=== PATIENT | female | born 1960 | race Caucasian/White ===

== ENCOUNTER 2018-09-17 08:36 | Inpatient (IN) | payer OTHER ==
[2018-09-17] MEDS ORDERED: Morphine VIAL* 4 MG/ML VIAL (1 ml vial) IV ONE (09:10)
[2018-09-17] MEDS ORDERED: Ondansetron INJ* 2 MG/ML VIAL IV ONE (09:10)
[2018-09-17 09:45] LABS: Hematocrit 39 % (35-47); Hemoglobin 12.8 g/dl (12.0-16.0); Mean Corpuscular HGB Conc 33 g/dl (31-36); Mean Corpuscular Hemoglobin 32 pg (27-31); Mean Corpuscular Volume 97 fL (80-97); Mean Platelet Volume 7.2 fL (7.4-10.4); Platelet Count 393 10^3/ul (150-450); Red Cell Distribution Width 13 % (10.5-15); White Blood Count 14.1 10^3/ul (3.5-10.8)
[2018-09-17 10:00] LABS: Albumin/Globulin Ratio 1.3 (1-3); BUN/Creatinine Ratio 14.1 (8-20); C Reactive Protein 143.63 mg/L (<8.01); Calcium 9.3 mg/dL (8.6-10.3); EGFR African American 102.3 (>60); EGFR Non-African American 84.6 (>60); Globulin 3.1 g/dL (2-4); Potassium 4.5 mmol/L (3.5-5.0); Total Bilirubin 0.6 mg/dL (0.2-1.0); Total Protein 7.1 g/dL (6.4-8.9)
[2018-09-17 10:07] LABS: ABS Basophils 0 10^3/ul (0-0.2); ABS Eosinophils 0.1 10^3/ul (0-0.6); ABS Lymphocytes 0.7 10^3/ul (1.0-4.8); ABS Monocytes 0.9 10^3/ul (0-0.8); ABS Neutrophils 12.5 10^3/ul (1.5-7.7); ABS Nucleated RBC 0 10^3/ul; Eosinophil % 0.8 %; Lymphocyte % 4.6 %; Nucleated Red Blood Cells % 0
[2018-09-17] MEDS ORDERED: Iohexol 350* (CONTRAST) 500 ML MDV IV ONE (10:43)
[2018-09-17] MEDS ORDERED: Levofloxacin 750 MG IVPREMIX(* 750 MG/150 ML BAG IVPB ONE (11:15)
[2018-09-17] MEDS ORDERED: NS 0.9% 1000 ML** 1,000 ML IV ONE (11:15)
[2018-09-17] MEDS ORDERED: Morphine VIAL* 10 MG/ML 1 ML VIAL IV ONE (11:24)
[2018-09-17] MEDS ORDERED: traMADol TAB* 50 MG PO PRN (12:59)
[2018-09-17] MEDS ORDERED: Enoxaparin(*) 40 MG/0.4 ML SYR SUBCUT SCH (13:00)
[2018-09-17 13:09] LABS: INR 0.98 (0.77-1.02)
--- NOTE | 2018-09-17 13:10 | ED ---
HPI Cardiac - HPI Summary HPI Summary: Patient is a 58-year-old female with right upper back pain which radiates around the right rib cage into the RUQ. On arrival, she states "it's my gallbladder." She states she's never had any previous gallbladder diagnosis. Denies any nausea, vomiting. Symptoms are not aggravated after eating. Symptoms are aggravated with dependency and positional. She states symptoms are worse with lying to her right side, slightly better with sitting upright. She does endorse some SOB with this to which she states "it is difficult to breathe due to pain." She was recently diagnosed last week with breast cancer, biopsy was done a few days ago and she is to follow up in [place] on . She states other than the breast biopsy, no other scans were completed at this time. She endorses heavy smoking history 40 years. She denies any cough, cough with production. Denies any oxygen usage at baseline. She does not have a PCP and states has not on to see a physician in over 30 years. - History of Current Complaint Chief Complaint: Gema Stated Complaint: BACK PAIN LOWER RIGHT Time Seen by Provider: 09/17/18 08:44 Hx Obtained From: Patient Onset/Duration: Started Days Ago Timing: Constant Initial Severity: Moderate Current Severity: Moderate Pain Intensity: 9 Pain Scale Used: 0-10 Numeric Aggravating Factor(s): Position Alleviating Factor(s): Rest Associated Signs and Symptoms: Positive: Negative - Risk Factors Pulmonary Embolism Risk Factors: Malignancy, Smoking Cardiac Risk Factors: Smoking Atrial Fibrillation Risk Factors: Negative TAD Risk Factors: Negative AMI/ACS Risk Factors: Hypertension, Smoking Pseudomonas Risk Factors: Chronic Lung Disease Tuberculosis Risk Factors: Negative - Allergy/Home Medications Allergies/Adverse Reactions: Allergies Allergy/AdvReac Type Severity Reaction Status Date / Time Cephalosporins Allergy Intermediate Hives Verified 09/17/18 10:40 oxycodone [From Percocet] Allergy Intermediate Hallucinati Verified 09/17/18 15: 57 ons Penicillins Allergy Intermediate Hives Verified 09/17/18 10:40 cats Allergy Intermediate Eyes Uncoded 09/17/18 10:40 Itchy/Swollen/Red/Watery PMH/Surg Hx/FS Hx/Imm Hx Previously Healthy: No - hx of breast CA Endocrine/Hematology History: Denies: Hx Diabetes Cardiovascular History: Denies: Hx Hypertension History: Denies: Hx Renal Disease Neurological History: Denies: Hx Headaches - Cancer History Hx Chemotherapy: No Hx Radiation Therapy: No - Surgical History Surgery Procedure, Year, and Place: BILAT HIP REPLACEMENT, - Immunization History Date of Influenza Vaccine: 04/2018 Hx Pertussis Vaccination: No Immunizations Up to Date: Yes Infectious Disease History: No Infectious Disease History: Denies: Traveled Outside the [place] in Last 30 Days - Social History Occupation: Unemployed Lives: With Family Alcohol Use: Occasionally Alcohol Amount: WINE DAILY Hx Substance Use: No Substance Use Type: Reports: None Hx Tobacco Use: Yes Smoking Status (MU): Heavy Every Day Tobacco Smoker Type: Cigarettes Review of Systems Constitutional: Negative Negative: Fever, Chills, Fatigue, Skin Diaphoresis Positive: Chest Pain - right upper back pain, Other. Negative: Palpitations Positive: Abdominal Pain - RUQ pain. Negative: Vomiting, Diarrhea, Nausea Genitourinary: Negative Positive: no symptoms reported, see HPI Positive: Arthralgia - right upper back pain, Myalgia Neurological: Negative All Other Systems Reviewed And Are Negative: Yes Physical Exam Vital Signs On Initial Exam: Initial Vitals Temp Pulse Resp BP Pulse Ox 98.6 F 95 20 152/84 94 09/17/18 08:40 09/17/18 08:40 09/17/18 08:40 09/17/18 08:40 09/17/18 08:40 Diagnostics - Vital Signs Vital Signs Temp Pulse Resp BP Pulse Ox 09/17/18 11:36 20 09/17/18 11:17 94 129/84 92 09/17/18 11:09 97 87 09/17/18 10:47 91 150/89 93 09/17/18 10:17 93 136/65 92 09/17/18 10:01 95 92 09/17/18 09:47 89 151/78 89 09/17/18 09:45 19 09/17/18 08:51 100 163/80 91 09/17/18 08:40 98.6 F 95 20 152/84 94 - Laboratory Lab Results: Lab Results 09/17/18 09/17/18 09/17/18 Range/Units 09:37 09:37 09:37 WBC 14.1 H (3.5-10.8) 10^3/ul RBC 4.00 (4.00-5.40) 10^6/ul Hgb 12.8 (12.0-16.0) g/dl Hct 39 (35-47) % MCV 97 (80-97) fL MCH 32 H (27-31) pg MCHC 33 (31-36) g/dl RDW 13 (10.5-15) % Plt Count 393 (150-450) 10^3/ul MPV 7.2 L (7.4-10.4) fL Neut % (Auto) 88.1 % Lymph % (Auto) 4.6 % [place] % (Auto) 6.4 % Eos % (Auto) 0.8 % Baso % (Auto) 0.1 % Absolute Neuts (auto) 12.5 H (1.5-7.7) 10^3/ul Absolute Lymphs (auto) 0.7 L (1.0-4.8) 10^3/ul Absolute Monos (auto) 0.9 H (0-0.8) 10^3/ul Absolute Eos (auto) 0.1 (0-0.6) 10^3/ul Absolute Basos (auto) 0 (0-0.2) 10^3/ul Absolute Nucleated RBC 0 10^3/ul Nucleated RBC % 0 D-Dimer, Quantitative 548 H (Less Than 230) ng/mL Sodium 134 L (135-145) mmol/L Potassium 4.5 (3.5-5.0) mmol/L Chloride 103 (101-111) mmol/L Carbon Dioxide 23 (22-32) mmol/L Anion Gap 8 (2-11) mmol/L BUN 10 (6-24) mg/dL Creatinine 0.71 (0.51-0.95) mg/dL Est GFR ( Amer) 102.3 (>60) Est GFR (Non-Af Amer) 84.6 (>60) BUN/Creatinine Ratio 14.1 (8-20) Glucose 116 H (70-100) mg/dL Calcium 9.3 (8.6-10.3) mg/dL Total Bilirubin 0.60 (0.2-1.0) mg/dL AST 12 L (13-39) U/L ALT 13 (7-52) U/L Alkaline Phosphatase 66 (34-104) U/L C-Reactive Protein 143.63 H (<8.01) mg/L Total Protein 7.1 (6.4-8.9) g/dL Albumin 4.0 (3.2-5.2) g/dL Globulin 3.1 (2-4) g/dL Albumin/Globulin Ratio 1.3 (1-3) Result Diagrams: 09/17/18 09:37 09/17/18 09:37 Lab Statement: Any lab studies that have been ordered have been reviewed, and results considered in the medical decision making process. Disposition - Course Course Of Treatment: During the course of treatment, the patient is evaluated for right upper back pain which began as left upper back pain radiating now into the right upper back. She does endorse some shortness of breath with this due to pain. She was recently diagnosed with ER-positive breast cancer and has a follow-up with her surgeon in [place] this week. Patient is a heavy smoker , but does not use O2 at home. She endorses a cough without production. Symptoms are aggravated after eating, but she endorses pain to the RUQ. Chest x -ray shows moderate right pleural effusion, right upper lobe airspace disease. Underlying nodules in the right base is not excluded. Left lung field demonstrates some minimal atelectasis. Due to her recent diagnosis of breast CA , d-dimer is obtained and is elevated at 548. CTA of the chest obtained which shows no definite pulmonary embolus or aortic dissection is noted. Airspace disease in the right lower lobe with moderate pleural effusion consistent with pneumonia. Additional area of consolidation is noted in the right upper lobe with suggestion of a small abscess measuring up to 1.6 cm. On arrival her O2 sat is 92%, however quickly dropped to 87% with any movement. She is maintained on O2 at 3 L. Discussed case with hospitalist, Dr. Darden who agrees to admit patient for pneumonia and oxygen saturation. - Differential Dx - Cardiopulmonary Differential Diagnoses - Cardiopulmonary: Chest Wall Pain, Other - Abscess, lung nodules, pneumonia, hypoxia - Diagnoses Provider Diagnoses: Pneumonia, Hypoxia Discharge - Sign-Out/Discharge Documenting (check all that apply): Patient Departure All imaging exams completed and their final reports reviewed: No Patient Received Moderate/Deep Sedation with Procedure: No - Discharge Plan Condition: Fair Disposition: ADMITTED TO [facility] Billing Disposition and Condition Condition: FAIR Disposition: Admitted to [facility]
--- NOTE | 2018-09-17 14:56 | HP ---
HISTORY OF PRESENT ILLNESS: DATE OF ADMISSION: 09/17/18 ADMITTING PROVIDER: Yordan Darden MD PRIMARY CARE PROVIDER: Mona Booth NP-C of Family Medicine. CHIEF COMPLAINT: Back pain and shortness of breath. HISTORY OF PRESENT ILLNESS: Kavitha Mcneil is a 58-year-old female with past medical history of anxiety, longtime smoker, and a recent diagnosis of ER positive, GA positive, HER-2 negative, invasive adenocarcinoma of the left breast who has been scheduled to see her breast surgeon in [place] later this week. She attests that for the last 6 days or so she developed back pain first in her upper left back, then radiating to her right back. She was taking Advil 800 mg q.6 hours to relieve the pain along with some NyQuil. She developed shortness of breath a few days ago with dyspnea on exertion and discomfort with deep breath. The pain was also worse when lying flat. She denies any fevers, chills, night sweats or change in her weight. She presented to [facility] Emergency Room, was found to have a leukocytosis of 14.1, was tachycardic between 95 and 100, respiratory rate was 20 and initially satting 94% on room air, but then dipped down to 89%. Her initial imaging was concerning for pneumonia on her chest x-ray with a moderate right pleural effusion, right upper lobe airspace disease, and some minimal atelectasis on the left lung field, could not exclude nodules in the right base. CRP was 143. She had a elevated D-dimer of 548, and a CT chest angiogram, was performed, which showed no definitive pulmonary embolus or aortic dissection. There was airspace disease in the right lower lobe with moderate right pleural effusion consistent with pneumonia. Additional area of consolidation in the right upper lobe with suggestion of a small abscess measuring up to 1.6 cm. She was for referred to hospitalist service for admission for sepsis secondary to pneumonia causing acute hypoxic respiratory failure and in the setting of recent breast cancer diagnosis that is still being worked up and staged. She has already received 750 mg IV Levaquin in the ED and she got 1 L of normal saline along with some 4 mg morphine x2. Additional workup included a gallbladder ultrasound, which showed some suggestion of fatty infiltration of the liver, but otherwise normal. PAST MEDICAL HISTORY: Anxiety, recent diagnosis of left breast invasive adenocarcinoma, ER positive, GA positive, HER-2/hank negative with planned further staging and followup with Dr. Yordan Ziegler of [place], initial evaluation had been planned , 09/20/18. She has not yet seen Dr. Dinah Chopra of Hematology/Oncology. Current smoker and a daily alcohol drinker. MEDICATIONS: Effexor 75 mg q.p.m. ALLERGIES: Include PENICILLINS (unknown, occurred as a child) and CEPHALOSPORINS, which was approximately 17 years ago created an itchy rash. FAMILY HISTORY: Her mother of breast cancer at age 71 that was a second recurrence. Her father of non-Hodgkin's lymphoma at age 84. Her brother is alive but unknown health history. Sister is alive and healthy. SOCIAL HISTORY: The patient is a half pack per day smoker, started in her teens. She drinks couple glasses of wine daily. Denies any history of alcohol withdrawal or seizures. She went a couple of days last week without any alcohol given the inclement weather. 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 She desires to be full code , but makes clear that if she was brain or terminally ill, she would not want further interventions. REVIEW OF SYSTEMS: Complete 14-point review of systems negative except as per HPI. She denies any headaches, weakness, tremors, skin rashes, abdominal pain, nausea, vomiting, diarrhea, constipation, recent travel, sick contacts. PHYSICAL EXAMINATION GENERAL APPEARANCE: No acute distress. VITAL SIGNS: Temperature 98.6, pulse rate 95 to 100, satting low at 89% on room air, blood pressure 151/78, respiratory rate 19 to 20. HEENT: Normocephalic, atraumatic. Pupils equally round reactive to light. Extraocular motions intact. No scleral icterus. NECK: Supple. No cervical lymphadenopathy. LUNGS: With rhonchi at the left mid lung and rhonchi with slightly reduced breath sounds on the right side. No wheezing. CARDIOVASCULAR: Regular rate and rhythm. No murmurs, rubs or gallops. ABDOMEN: Soft, some tenderness in the right upper quadrant. No rebound or guarding. EXTREMITIES: Warm, well perfused. Trace pitting edema bilaterally, which is chronic. SKIN: No lesions. No rashes. NEURO: Cranial nerves II through XII intact. Curriculum Assistant Principal strength intact. Biceps elicits back pain and patient did not complete hip flexion. Dorsiflexion, plantarflexion intact. DIAGNOSTIC STUDIES/LAD DATA: White count 14.1, hemoglobin 12.8, hematocrit 39 , platelets 393. D-dimer 548. Sodium 134, potassium 4.5, chloride 103, carbon dioxide 23, BUN 10 and creatinine 0.71, glucose 116. AST 12, ALT 13, alk phos 66, CRP 143, albumin 4.0. IMAGING: As above. Her initial imaging was concerning for pneumonia on her chest x-ray with a moderate right pleural effusion, right upper lobe airspace disease, and some minimal atelectasis on the left lung field, could not exclude nodules in the right base. CT chest angiogram, thoracic, was performed, which showed no definitive pulmonary embolus or aortic dissection. There was airspace disease in the right lower lobe with moderate right pleural effusion consistent with pneumonia. Additional area of consolidation in the right upper lobe with suggestion of a small abscess measuring up to 1.6 cm. EKG: Normal sinus rhythm with a Q wave in III, V1, V2. No ST elevations or depressions. Normal axis. ASSESSMENT AND PLAN: Kavitha Mcneil is a 58-year-old female with past medical history of anxiety and recent ER positive, GA positive, HER-2 negative left-sided invasive adenocarcinoma, presenting with shortness of breath times few days, back pain, and imaging consistent with right greater than left community acquired pneumonia and hard to rule out a right upper lobe abscess versus dense consolidation. I am going to consult Dr. Daniels to take a look at the images to see if it would be beneficial to do a diagnostic thoracentesis of the abscess, especially given her history of recent breast cancer that has not been fully staged. She is a current smoker. She has penicillin allergy (though remote and unclearly defined), and cephalosporins cause pruritic rashes, The ED has started Levaquin 750mg, I will continue that for now, could consider switching to carbapenem like meropenem with any decompensation. I am going to add blood cultures, but of note they were not obtained prior to initial antibiotics. Will get a urinalysis, urine strep, pneumonia, and legionella antigens, sputum culture. I am going to add on a BNP and troponin given her shortness of breath, also has evidence of pitting edema which is chronic. For DVT prophylaxis, given her recent recent cancer diagnosis, I am going to put her on Lovenox 40 mg daily. She is a full code. She can eat an unrestricted diet initially though may need to put her n.p.o. if thoracentesis is entertained by Dr. Daniels. She will likely have to reschedule her appointment with Dr. Ziegler. Medical surrogate is her , Warren Mcneil. [id number]/[facility] #: [id number] MTDMegan
[2018-09-17] MEDS ORDERED: oxyCODONE/Acetamin 5/325 MG* TAB PO PRN (15:51)
[2018-09-17] MEDS: HYDROcodone/ACETAMIN 5-325 MG* 1 TAB PO PRN ×2 (16:12→22:56)
[2018-09-17] MEDS: Ketorolac INJ* 30 MG/ML 1 ML VIAL IV PUSH PRN ×2 (16:12→22:56)
[2018-09-17] MEDS: Venlafaxine EXT RELEASE CAP* 75 MG PO SCH (20:28)
[2018-09-17 21:30] LABS: Urine Appearance Cloudy; Urine Bacteria 1+ (Absent); Urine Bilirubin Negative (Negative); Urine Blood 1+ (Negative); Urine Color Yellow; Urine Glucose Negative (Negative); Urine Ketones Trace (Negative); Urine Nitrite Negative (Negative); Urine Protein Negative (Negative); Urine Red Blood Cell 3+(>10/hpf) (Absent); Urine Specific Gravity 1.059 (1.010-1.030); Urine Squamous Epithelial Cell Present (Absent); Urine Urobilinogen Negative (Negative); Urine White Blood Cell Trace(0-5/hpf) (Absent)
[2018-09-17 22:34] LABS: Erythrocyte Sed Rate 60 mm/Hr (0-30)
[2018-09-18] MEDS: HYDROcodone/ACETAMIN 5-325 MG* 1 TAB PO PRN ×4 (06:50→23:14)
[2018-09-18] MEDS: Ketorolac INJ* 30 MG/ML 1 ML VIAL IV PUSH PRN ×4 (06:52→23:14)
[2018-09-18 08:23] LABS: ABS Basophils 0 10^3/ul (0-0.2); ABS Eosinophils 0.2 10^3/ul (0-0.6); ABS Lymphocytes 0.7 10^3/ul (1.0-4.8); ABS Monocytes 0.8 10^3/ul (0-0.8); ABS Neutrophils 13.2 10^3/ul (1.5-7.7); ABS Nucleated RBC 0 10^3/ul; Eosinophil % 1.3 %; Hematocrit 35 % (35-47); Hemoglobin 11.7 g/dl (12.0-16.0); Lymphocyte % 4.6 %; Mean Corpuscular HGB Conc 33 g/dl (31-36); Mean Corpuscular Hemoglobin 32 pg (27-31); Mean Corpuscular Volume 97 fL (80-97); Mean Platelet Volume 7.4 fL (7.4-10.4); Nucleated Red Blood Cells % 0; Platelet Count 381 10^3/ul (150-450); Red Blood Count 3.65 10^6/ul (4.00-5.40); Red Cell Distribution Width 13 % (10.5-15)
[2018-09-18 08:40] LABS: EGFR African American 79.9 (>60); Potassium 4.4 mmol/L (3.5-5.0)
[2018-09-18] MEDS: Levofloxacin 750 MG IVPREMIX(* 750 MG/150 ML BAG IVPB SCH (11:49)
[2018-09-18 16:44] LABS: Body Fluid Source Pleural Fluid
[2018-09-18 17:30] LABS: Body Fluid Mono 9 %
[2018-09-18] MEDS: Enoxaparin(*) 40 MG/0.4 ML SYR SUBCUT SCH (18:14)
--- NOTE | 2018-09-18 18:27 | CONS ---
PULMONARY CONSULTATION REPORT: DATE OF CONSULT: 09/18/18 CONSULTATION REQUESTED BY: Dr. Yordan Darden. REASON FOR CONSULT: Evaluation of pleural effusion. HISTORY OF PRESENT ILLNESS: The patient is a 58-year-old obese female, former smoker, with history of breast cancer, ER/NH positive, HER-2 negative invasive adenocarcinoma of the left breast, has been scheduled to see her breast surgeon in [place] later the week. She has been having back pain over the past 6 days , started in the left upper back, then radiating to her right back. She was taking Advil and NyQuil for pain relief. Pain worsens while lying down. The patient also complained of shortness of breath and discomfort taking deep breath. The patient denied fevers, chills, night sweats, or change in weight. She was found to have leukocytosis and tachycardia on arrival. She was also slightly tachypneic. O2 sats were around 94% on room air and would drop to 89% in the emergency room. The patient continued to remain afebrile. She has required O2 supplementation at 4 L per minute to maintain oxygen saturation at around 95%. Further evaluation included chest x-ray and CT of the chest. I have personally reviewed chest x-ray and CT of the chest and with the patient today. Chest x-ray showed evidence of airspace opacity in the right lung with evidence of pleural effusion. Mild atelectasis noted on the left side at the base. CTA did confirm moderate-sized right pleural effusion with surrounding atelectatic lung. The patient also with evidence of dense area of consolidation in the right upper lobe peripherally concerning for possible abscess. No significant mediastinal or hilar adenopathy noted. No evidence of filling defects in pulmonary arteries noted. The patient was started on Levaquin for management of pneumonia. Pulmonary consultation was requested for evaluation of pleural effusion. The patient was seen and examined at bedside. The patient reports having intermittent cramp-like pains in the back, between her ribs. The patient denies any sick contacts or recent travel. The patient did not appear to be in any distress upon my evaluation. PAST MEDICAL HISTORY: 1. Breast cancer. 2. Current smoking status and alcohol abuse. MEDICATIONS: Effexor 75 mg q.p.m. ALLERGIES: PENICILLIN, CEPHALOSPORINS. FAMILY HISTORY: Mother of breast cancer at age of 71 and that was a second recurrence. Father of non-Hodgkin lymphoma at age 84. Brother is alive. SOCIAL HISTORY: Half-a-pack per day smoker, started in teens. Drinks couple of glasses of wine every day. REVIEW OF SYSTEMS: All 14 systems reviewed and as per HPI. PHYSICAL EXAM: The patient is sitting up in bed, in no apparent distress. Vital Signs: Temperature 98.2, pulse 81 beats per minute, respiratory rate 26 per minute, O2 sat 95% on 4 L, blood pressure 104/66. HEENT: Pupils equal, reactive to light. Mucous membranes moist. Lungs: Diminished air entry at right base. Cardiovascular: S1, S2 present, regular. Abdomen: Obese. Bowel sounds present. Nontender, nondistended. Extremities: Normal range of motion. DIAGNOSTIC STUDIES/LAB DATA: WBC count 15, hemoglobin 11.7, hematocrit 35, platelet count 381. D-dimer 548. Sodium 132, potassium 4.4, chloride 103, bicarb 23, BUN 15, creatinine 0.88, glucose 111. Troponins within normal limits. BNP within normal limits. Chest x-ray and CT as described in HPI. IMPRESSION AND RECOMMENDATIONS: 58-year-old female with recently diagnosed breast cancer, the patient also with significant smoking history, admitted with new- onset back pain and shortness of breath, found to have moderate right pleural effusion along with pneumonic consolidation in the right lung. 1. Community-acquired pneumonia. 2. Possible parapneumonic effusion. 3. Recent breast cancer diagnosis. Will need diagnostic and therapeutic thoracentesis with drainage of right pleural effusion. Atelectasis and pleural effusion, likely causing hypoxemia. No evidence of pulmonary embolism on CTA. No evidence of significant emphysema on the CT. The patient would benefit from thoracentesis. Risks and benefits associated with thoracentesis were thoroughly discussed with the patient and she is agreeable to undergoing the procedure. Please refer to separately dictated thoracentesis report in the chart. 600 mL of dark fluid were removed and sent to the lab for cytological and biochemical examination. Postprocedure chest x-ray is pending. Blood cultures are negative to date, as is septic workup. Metastatic breast cancer to pleural fluid is less likely, though in the differential. Titrate FiO2 as tolerated. The patient is not looking septic at this time. Agree with current antibiotic choice. Thank you for allowing me to participate in the care of your patient. Will follow up with you. [id number]/[facility] #: [id number] BELEN
[2018-09-18] MEDS: Venlafaxine EXT RELEASE CAP* 75 MG PO SCH (19:53)
--- NOTE | 2018-09-18 21:48 | PN ---
Subjective Date of Service: 09/18/18 Interval History: Afebrile on 3L. Still with back pain but more comfortable appearing. now s/p diagnostic and therapeutic thoracenteiss with Dr. Frances fraser. 600cc dark fluid. WBC still elevated 15 Objective Active Medications: Hydrocodone Bitart/Acetaminophen ([place] 5-325 Tab*) 1 tab PO Q4H PRN PRN Reason: PAIN Last Admin: 09/18/18 16:05 Dose: 1 tab Enoxaparin Sodium (Lovenox(*)) 40 mg SUBCUT Q24H [facility] Last Admin: 09/18/18 18:14 Dose: 40 mg Levofloxacin/Dextrose (Levaquin 750 Mg Ivpremix(*)) 750 mg in 150 mls @ 100 mls /hr IVPB Q24H [facility] Last Admin: 09/18/18 11:49 Dose: 100 mls/hr Ketorolac Tromethamine (Toradol Inj*) 30 mg IV PUSH Q6H PRN PRN Reason: PAIN Last Admin: 09/18/18 18:13 Dose: 30 mg Venlafaxine HCl (Effexor Xr Cap*) 75 mg PO BEDTIME [facility]; Protocol Last Admin: 09/18/18 19:53 Dose: 75 mg Vital Signs - 8 hr 09/18/18 09/18/18 09/18/18 15:14 16:05 19:09 Temperature 98.6 F 98.5 F Pulse Rate 81 83 Respiratory 26 22 18 Rate Blood Pressure 125/67 128/46 (mmHg) O2 Sat by Pulse 94 93 Oximetry 09/18/18 09/18/18 19:44 20:01 Temperature Pulse Rate Respiratory 20 18 Rate Blood Pressure (mmHg) O2 Sat by Pulse Oximetry Oxygen Devices in Use Now: Nasal Cannula Appearance: mild discomfort appearing, worn down. Eyes: No Scleral Icterus Neck: NL Appearance and Movements; NL JVP, Trachea Midline Respiratory: - - diffuse rhonchi worse mid lungs. no wheezing. Cardiovascular: NL Sounds; No Murmurs; No JVD, No Edema Abdominal: NL Sounds; No Tenderness; No Distention, No Hepatosplenomegaly Extremities: No Edema Skin: No Rash or Ulcers Neurological: Alert and Oriented x 3 Nutrition: Taking PO's Result Diagrams: 09/18/18 08:09 09/18/18 08:09 Additional Lab and Data: Laboratory Results - last 24 hr 09/17/18 09/18/18 09/18/18 09:37 08:09 08:09 WBC 15.0 H RBC 3.65 L Hgb 11.7 L Hct 35 MCV 97 MCH 32 H MCHC 33 RDW 13 Plt Count 381 MPV 7.4 Neut % (Auto) 88.6 Lymph % (Auto) 4.6 [place] % (Auto) 5.3 Eos % (Auto) 1.3 Baso % (Auto) 0.2 Absolute Neuts (auto) 13.2 H Absolute Lymphs (auto) 0.7 L Absolute Monos (auto) 0.8 Absolute Eos (auto) 0.2 Absolute Basos (auto) 0 Absolute Nucleated RBC 0 Nucleated RBC % 0 ESR 60 H Sodium 132 L Potassium 4.4 Chloride 103 Carbon Dioxide 23 Anion Gap 6 BUN 15 Creatinine 0.88 Est GFR ( Amer) 79.9 Est GFR (Non-Af Amer) 66.0 BUN/Creatinine Ratio 17.0 Glucose 111 H Calcium 9.0 Fluid Source Fluid Volume Fluid Color Fluid Appearance Fluid WBC Fluid RBC Fluid Tot Cell Count Fluid Neutrophils Fluid Lymphocytes Fluid Monocytes Fluid Eosinophils 09/18/18 15:52 WBC RBC Hgb Hct MCV MCH MCHC RDW Plt Count MPV Neut % (Auto) Lymph % (Auto) [place] % (Auto) Eos % (Auto) Baso % (Auto) Absolute Neuts (auto) Absolute Lymphs (auto) Absolute Monos (auto) Absolute Eos (auto) Absolute Basos (auto) Absolute Nucleated RBC Nucleated RBC % ESR Sodium Potassium Chloride Carbon Dioxide Anion Gap BUN Creatinine Est GFR ( Amer) Est GFR (Non-Af Amer) BUN/Creatinine Ratio Glucose Calcium Fluid Source Pleural fluid Fluid Volume 600 Fluid Color Yellow Fluid Appearance Cloudy Fluid WBC 2700 Fluid RBC 885 Fluid Tot Cell Count 100 Fluid Neutrophils 73 Fluid Lymphocytes 17 Fluid Monocytes 9 Fluid Eosinophils 1 Microbiology and Other Data: Microbiology 09/18/18 15:52 Pleural Fluid Gram Stain - Preliminary 09/17/18 21:05 Urine Urine Culture - Final No Growth (<1,000 CFU/mL) 09/17/18 13:46 Blood Venous Aerobic Blood Culture - Preliminary No Growth Day 1 09/17/18 13:46 Blood Venous Anaerobic Blood Culture - Preliminary No Growth Day 1 09/17/18 13:13 Blood Venous Aerobic Blood Culture - Preliminary No Growth Day 1 09/17/18 13:13 Blood Venous Anaerobic Blood Culture - Preliminary No Growth Day 1 09/17/18 21:05 Urine Legionella Urinary Antigen - Final Negative Legionella Antigen 09/17/18 21:05 Urine Streptococcus pneumoniae Ag Screen - Final Negative S. pneumo Antigen Assess/Plan/Problems-Billing Assessment: 58 year old female 1/2 ppd smoker(20 pack years), daily EtOH, anxiety, recent biopsy of left breast mass invasive adenocarcinoma ER+/NC+/tik2cdr negative p/w back pain, shortness of breath. R>L pneumonia with pleural effusion/possible abscess. On levaquin (pcn, cephalosporin allergy). - Patient Problems (1) Pneumonia Current Visit: Yes Status: Acute Code(s): J18.9 - PNEUMONIA, UNSPECIFIED ORGANISM SNOMED Code(s): 197864257 Comment: Continue levaquin met SEPSIS 2 criteria on admission with tachypenia 26, acute hypoxic respiratory failure, tachycardia >90, leukocytosis(persists), source. f/u Cultures. no note BCx was obtained after antibiotics. appreciate help of Dr. Daniels who performed diagnosist and therapeutic thoracentesis today 09/18. Add on LDH and serum protein for AM labs to assess Light's criteria. levaquin day 2. pain control with ketorolac 30 q6h prn and percoset q4h prn. (2) Breast cancer Current Visit: Yes Status: Acute Code(s): C50.919 - MALIGNANT NEOPLASM OF UNSP SITE OF UNSPECIFIED FEMALE BREAST SNOMED Code(s): 348313796 Comment: ER+/NC+/wsa7bbp negative. Not fully staged. Plan to follow-up with Dr. Yordan Ziegler (breast surgery at [facility]) and Dinah Chopra as outpatient. f/u pleural fluid cytology. (3) Sepsis Current Visit: Yes Status: Acute Comment: plan as above. (4) Pleural effusion Current Visit: Yes Status: Acute Code(s): J90 - PLEURAL EFFUSION, NOT ELSEWHERE CLASSIFIED SNOMED Code(s): 72186079 Comment: thora as above. (5) Smoker Current Visit: Yes Status: Acute Code(s): F17.200 - NICOTINE DEPENDENCE, UNSPECIFIED, UNCOMPLICATED SNOMED Code(s): 94836255 Comment: 1/2 ppd, 20 pack years. can add patch if requests. (6) Daily consumption of alcohol Current Visit: Yes Status: Acute Code(s): Z78.9 - OTHER SPECIFIED HEALTH STATUS SNOMED Code(s): 459695863 Comment: monitor for withdrawals. no hx of seizures or withdrawals. (7) Anxiety Current Visit: Yes Status: Acute Code(s): F41.9 - ANXIETY DISORDER, UNSPECIFIED SNOMED Code(s): 11710070 Comment: continue effexor Status and Disposition: medicine inpatient for resolving sepsis, f/u thora cultures and hypoxic respiratory failure.
--- NOTE | 2018-09-18 21:52 | PRO ---
THORACENTESIS REPORT: DATE OF PROCEDURE: 09/18/18 PROCEDURE PERFORMED: Ultrasound-guided thoracentesis on the right side. PREPROCEDURAL DIAGNOSIS: Pneumonia and pleural effusion. ANESTHESIA: Local anesthesia with 1% lidocaine, 5 cc. DESCRIPTION OF PROCEDURE: Informed consent was obtained from the patient prior to the procedure after all the risks and benefits including risk of pneumothorax was thoroughly explained. Appropriate time-out was agreed on by attending staff prior to the procedure. A portable ultrasound was utilized at bedside to localize moderate amounts of right pleural effusion with surrounding atelectatic lung. Strict aseptic precautions and barrier techniques were utilized. The patient was sitting up and leaning forward. A CareFusion thoracentesis catheter of 8-[place]gu[place] was utilized. Area was sterilized with chlorhexidine swab. Sterile drape was placed. After ultrasound localization, anesthesia was achieved intradermally subcutaneously down into the pleural space taking precautions. A #11-scalpel blade was used to make a stab incision. A CareFusion 8-[place]guillan thoracentesis catheter was then inserted under manual suction taking precautions. Catheter was left in place and needle was removed. 600 mL of dark yellow and slightly turbid fluid was removed under manual suction. The patient had slight discomfort towards the end of the procedure complaining of muscle spasm. The patient's vitals were checked after the procedure, which were within normal limits. A postprocedure chest x-ray was performed and is pending at the time of dictation. Specimen was sent to the lab for further testing. [id number] #: [id number] MTDD
[2018-09-19 05:30] LABS: ABS Basophils 0.1 10^3/ul (0-0.2); ABS Eosinophils 0.2 10^3/ul (0-0.6); ABS Lymphocytes 1.1 10^3/ul (1.0-4.8); ABS Monocytes 0.7 10^3/ul (0-0.8); ABS Neutrophils 11.9 10^3/ul (1.5-7.7); ABS Nucleated RBC 0 10^3/ul; Eosinophil % 1.4 %; Hematocrit 36 % (35-47); Hemoglobin 11.9 g/dl (12.0-16.0); Lymphocyte % 7.8 %; Mean Corpuscular HGB Conc 33 g/dl (31-36); Mean Corpuscular Hemoglobin 32 pg (27-31); Mean Corpuscular Volume 96 fL (80-97); Mean Platelet Volume 7.8 fL (7.4-10.4); Nucleated Red Blood Cells % 0; Platelet Count 397 10^3/ul (150-450); Red Blood Count 3.75 10^6/ul (4.00-5.40); Red Cell Distribution Width 13 % (10.5-15); White Blood Count 14.1 10^3/ul (3.5-10.8)
[2018-09-19 05:44] LABS: BUN/Creatinine Ratio 20.8 (8-20); C Reactive Protein 310.25 mg/L (<8.01); Calcium 9.2 mg/dL (8.6-10.3); EGFR African American 100.7 (>60); EGFR Non-African American 83.2 (>60); Potassium 4.2 mmol/L (3.5-5.0); Total Protein 6.5 g/dL (6.4-8.9)
[2018-09-19] MEDS: HYDROcodone/ACETAMIN 5-325 MG* 1 TAB PO PRN ×3 (07:16→21:39)
[2018-09-19] MEDS: Ketorolac INJ* 30 MG/ML 1 ML VIAL IV PUSH PRN ×3 (07:16→21:41)
[2018-09-19] MEDS: Levofloxacin 750 MG IVPREMIX(* 750 MG/150 ML BAG IVPB SCH (10:38)
[2018-09-19] MEDS: Morphine VIAL* 4 MG/ML VIAL (1 ml vial) IV PRN ×3 (14:45→19:59)
[2018-09-19] MEDS: Enoxaparin(*) 40 MG/0.4 ML SYR SUBCUT SCH (16:48)
[2018-09-19] MEDS ORDERED: guaiFENesin ER TAB 600 MG PO SCH (17:01)
--- NOTE | 2018-09-19 17:21 | PN ---
Subjective Date of Service: 09/19/18 Interval History: still with a lot of pain, especially with coughing. Requiring 4L currently. Refused PT evaluation. Afebrile peritoneal fluid culture negative. no evidence of malignant cells. leukocytosis persists. Objective Active Medications: Hydrocodone Bitart/Acetaminophen ([place] 5-325 Tab*) 1 tab PO Q4H PRN PRN Reason: PAIN Last Admin: 09/19/18 13:51 Dose: 1 tab Enoxaparin Sodium (Lovenox(*)) 40 mg SUBCUT Q24H [facility] Last Admin: 09/19/18 16:48 Dose: 40 mg Guaifenesin (Mucinex*) 600 mg PO BID [facility] Levofloxacin/Dextrose (Levaquin 750 Mg Ivpremix(*)) 750 mg in 150 mls @ 100 mls /hr IVPB Q24H [facility] Last Admin: 09/19/18 10:38 Dose: 100 mls/hr Ketorolac Tromethamine (Toradol Inj*) 30 mg IV PUSH Q6H PRN PRN Reason: PAIN Last Admin: 09/19/18 13:51 Dose: 30 mg Morphine Sulfate (Morphine Vial*) 2 mg IV Q2H PRN PRN Reason: PAIN Last Admin: 09/19/18 14:45 Dose: 2 mg Venlafaxine HCl (Effexor Xr Cap*) 75 mg PO BEDTIME [facility]; Protocol Last Admin: 09/18/18 19:53 Dose: 75 mg Vital Signs - 8 hr 09/19/18 09/19/18 09/19/18 09:14 12:20 13:48 Temperature 98.0 F 97.3 F Pulse Rate 86 88 Respiratory 18 16 32 Rate Blood Pressure 155/87 169/59 (mmHg) O2 Sat by Pulse 95 96 Oximetry 09/19/18 09/19/18 09/19/18 13:51 13:52 14:45 Temperature Pulse Rate Respiratory 26 26 Rate Blood Pressure 158/68 (mmHg) O2 Sat by Pulse Oximetry 09/19/18 09/19/18 09/19/18 15:14 15:15 15:59 Temperature Pulse Rate 72 Respiratory 20 20 20 Rate Blood Pressure (mmHg) O2 Sat by Pulse Oximetry 09/19/18 16:03 Temperature 97.9 F Pulse Rate 84 Respiratory 20 Rate Blood Pressure 148/69 (mmHg) O2 Sat by Pulse 93 Oximetry Oxygen Devices in Use Now: Nasal Cannula Appearance: NAD but very fatigued looking Eyes: No Scleral Icterus Ears/Nose/Mouth/Throat: NL Teeth, Lips, Gums Neck: NL Appearance and Movements; NL JVP, Trachea Midline Respiratory: - - rhonchi diffusely (improved), decreased right base. Cardiovascular: NL Sounds; No Murmurs; No JVD, RRR Abdominal: NL Sounds; No Tenderness; No Distention, No Hepatosplenomegaly Extremities: No Edema Skin: No Rash or Ulcers Neurological: Alert and Oriented x 3, NL Sensation, NL Muscle Strength and Tone Nutrition: Taking PO's Result Diagrams: 09/19/18 04:36 09/19/18 04:35 Additional Lab and Data: Laboratory Results - last 24 hr 09/18/18 09/19/18 09/19/18 15:52 04:35 04:36 WBC 14.1 H RBC 3.75 L Hgb 11.9 L Hct 36 MCV 96 MCH 32 H MCHC 33 RDW 13 Plt Count 397 MPV 7.8 Neut % (Auto) 84.8 Lymph % (Auto) 7.8 [place] % (Auto) 5.0 Eos % (Auto) 1.4 Baso % (Auto) 1.0 Absolute Neuts (auto) 11.9 H Absolute Lymphs (auto) 1.1 Absolute Monos (auto) 0.7 Absolute Eos (auto) 0.2 Absolute Basos (auto) 0.1 Absolute Nucleated RBC 0 Nucleated RBC % 0 Sodium 128 L Potassium 4.2 Chloride 99 L Carbon Dioxide 20 L Anion Gap 9 BUN 15 Creatinine 0.72 Est GFR ( Amer) 100.7 Est GFR (Non-Af Amer) 83.2 BUN/Creatinine Ratio 20.8 H Glucose 96 Calcium 9.2 Lactate Dehydrogenase 196 C-Reactive Protein 310.25 H Total Protein 6.5 Fluid Cell Count Rvw By Microbiology and Other Data: Microbiology 09/17/18 13:46 Blood Venous Aerobic Blood Culture - Preliminary No Growth Day 2 09/17/18 13:46 Blood Venous Anaerobic Blood Culture - Preliminary No Growth Day 2 09/17/18 13:13 Blood Venous Aerobic Blood Culture - Preliminary No Growth Day 2 09/17/18 13:13 Blood Venous Anaerobic Blood Culture - Preliminary No Growth Day 2 09/18/18 15:52 Pleural Fluid Gram Stain - Final 09/18/18 15:52 Pleural Fluid Body Fluid Culture - Preliminary No Growth Day 1 09/17/18 21:05 Urine Urine Culture - Final No Growth (<1,000 CFU/mL) 09/17/18 21:05 Urine Legionella Urinary Antigen - Final Negative Legionella Antigen 09/17/18 21:05 Urine Streptococcus pneumoniae Ag Screen - Final Negative S. pneumo Antigen Assess/Plan/Problems-Billing Assessment: 58 year old female 1/2 ppd smoker(20 pack years), daily EtOH, anxiety, recent biopsy of left breast mass invasive adenocarcinoma ER+/[place]+/axo8qhy negative p/w back pain, shortness of breath. R>L pneumonia with pleural effusion/possible abscess s/p thoracentesis 09/18. On levaquin (pcn, cephalosporin allergy). - Patient Problems (1) Pneumonia Current Visit: Yes Status: Acute Code(s): J18.9 - PNEUMONIA, UNSPECIFIED ORGANISM SNOMED Code(s): 811521360 Comment: Continue levaquin met SEPSIS 2 criteria on admission with tachypenia 26, acute hypoxic respiratory failure, tachycardia >90, leukocytosis(persists), source. f/u Cultures, NGTD. no note BCx was obtained after antibiotics. appreciate help of Dr. Daniels who performed diagnosistic and therapeutic thoracentesis today 09/19. f/u LDH and serum protein for AM labs to assess Light' s criteria. levaquin day 3. pain control with ketorolac 30 q6h prn and percoset q4h prn. add guafenesin DM wean O2 as tolerated (2) Breast cancer Current Visit: Yes Status: Acute Code(s): C50.919 - MALIGNANT NEOPLASM OF UNSP SITE OF UNSPECIFIED FEMALE BREAST SNOMED Code(s): 469962814 Comment: ER+/KS+/cpu1iie negative. Not fully staged. Plan to follow-up with Dr. Yordan Ziegler (breast surgery at [facility]) and Dinah Chopra as outpatient. pleural fluid cytology without e/o malignant cells. (3) Sepsis Current Visit: Yes Status: Acute Comment: plan as above. (4) Pleural effusion Current Visit: Yes Status: Acute Code(s): J90 - PLEURAL EFFUSION, NOT ELSEWHERE CLASSIFIED SNOMED Code(s): 76192838 Comment: s/p thora as above. repeat CXR (PA/LAT) in AM (5) Smoker Current Visit: Yes Status: Acute Code(s): F17.200 - NICOTINE DEPENDENCE, UNSPECIFIED, UNCOMPLICATED SNOMED Code(s): 20896169 Comment: 1/2 ppd, 20 pack years. can add patch if requests. (6) Daily consumption of alcohol Current Visit: Yes Status: Acute Code(s): Z78.9 - OTHER SPECIFIED HEALTH STATUS SNOMED Code(s): 505838494 Comment: monitor for withdrawals. no hx of seizures or withdrawals. (7) Anxiety Current Visit: Yes Status: Acute Code(s): F41.9 - ANXIETY DISORDER, UNSPECIFIED SNOMED Code(s): 01526575 Comment: continue effexor Status and Disposition: medicine inpatient for resolving sepsis,continued hypoxic respiratory failure.
--- NOTE | 2018-09-19 17:25 | PN ---
Progress Note - Progress Note Date of Service: 09/19/18 - PUlm f/u note Note: Pt seen and examined at bedside. Patient reports improvement in breathing after thoracentesis yesterday. Has mild intermittent cough. Still requiring O2 supplementation at 4 L. Active Medications Generic Name Dose Route Start Last Admin Trade Name Freq PRN Reason Stop Dose Admin Hydrocodone Bitart/Acetaminophen 1 tab 09/17/18 16:02 09/19/18 13:51 [place] 5-325 Tab* PO 1 tab Q4H PRN Administration PAIN Enoxaparin Sodium 40 mg 09/18/18 17:00 09/19/18 16:48 Lovenox(*) SUBCUT 40 mg Q24H FLOR Administration Guaifenesin/Dextromethorphan 10 ml 09/19/18 17:01 Robitussin Dm* PO Q6H PRN COUGH Levofloxacin/Dextrose 750 mg in 150 mls @ 100 mls/hr 09/18/18 11:30 09/19/18 10:38 Levaquin 750 Mg Ivpremix(*) IVPB 100 mls/hr Q24H FLOR Administration Ketorolac Tromethamine 30 mg 09/17/18 16:04 09/19/18 13:51 Toradol Inj* IV PUSH 30 mg Q6H PRN Administration PAIN Morphine Sulfate 2 mg 09/19/18 14:25 09/19/18 14:45 Morphine Vial* IV 2 mg Q2H PRN Administration PAIN Venlafaxine HCl 75 mg 09/17/18 21:00 09/18/18 19:53 Effexor Xr Cap* PO 75 mg BEDTIME [facility] Administration Protocol Vital Signs Temp Pulse Resp BP Pulse Ox 97.9 F 84 20 148/69 93 09/19/18 16:03 09/19/18 16:03 09/19/18 16:03 09/19/18 16:03 09/19/18 16:03 O/E: Pt in NAD HEENT: PERRLA, NO JVD Lungs: Diminished at rt base CVS: S1, S2+, regular Abd: Soft, BS+ Ext: Normal ROM Neuro: nO focal deficits Laboratory Results - last 24 hr 09/18/18 09/19/18 09/19/18 15:52 04:35 04:36 WBC 14.1 H RBC 3.75 L Hgb 11.9 L Hct 36 MCV 96 MCH 32 H MCHC 33 RDW 13 Plt Count 397 MPV 7.8 Neut % (Auto) 84.8 Lymph % (Auto) 7.8 [place] % (Auto) 5.0 Eos % (Auto) 1.4 Baso % (Auto) 1.0 Absolute Neuts (auto) 11.9 H Absolute Lymphs (auto) 1.1 Absolute Monos (auto) 0.7 Absolute Eos (auto) 0.2 Absolute Basos (auto) 0.1 Absolute Nucleated RBC 0 Nucleated RBC % 0 Sodium 128 L Potassium 4.2 Chloride 99 L Carbon Dioxide 20 L Anion Gap 9 BUN 15 Creatinine 0.72 Est GFR ( Amer) 100.7 Est GFR (Non-Af Amer) 83.2 BUN/Creatinine Ratio 20.8 H Glucose 96 Calcium 9.2 Lactate Dehydrogenase 196 C-Reactive Protein 310.25 H Total Protein 6.5 Fluid Volume 600 Fluid Color Yellow Fluid Appearance Cloudy Fluid WBC 2700 Fluid RBC 885 Fluid Tot Cell Count 100 Fluid Neutrophils 73 Fluid Lymphocytes 17 Fluid Monocytes 9 Fluid Eosinophils 1 Fluid Cell Count Rvw By I/R: 58 year old female 1/2 ppd smoker(20 pack years), daily EtOH, anxiety, recent biopsy of left breast mass invasive adenocarcinoma ER+/AL+/ygp9icn negative admitted for evaluation of back pain, shortness of breath. R>L pneumonia with pleural effusion/possible abscess. Pt underwent thoracentesis yesterday with removal of 600ml of turbid fluid Cytology negative for malignancy, evidence of inflammation Pt on abx Afebrile F/u Cx on pl fluid Titrate FiO2 as tolerated OOB to chair
[2018-09-19] MEDS: Venlafaxine EXT RELEASE CAP* 75 MG PO SCH (20:01)
[2018-09-20] MEDS: Morphine VIAL* 4 MG/ML VIAL (1 ml vial) IV PRN (08:06)
[2018-09-20 08:45] LABS: ABS Basophils 0 10^3/ul (0-0.2); ABS Eosinophils 0.2 10^3/ul (0-0.6); ABS Lymphocytes 0.8 10^3/ul (1.0-4.8); ABS Monocytes 0.9 10^3/ul (0-0.8); ABS Neutrophils 12.5 10^3/ul (1.5-7.7); ABS Nucleated RBC 0 10^3/ul; Eosinophil % 1.2 %; Hematocrit 34 % (35-47); Hemoglobin 11.1 g/dl (12.0-16.0); Lymphocyte % 5.5 %; Mean Corpuscular HGB Conc 33 g/dl (31-36); Mean Corpuscular Hemoglobin 32 pg (27-31); Mean Corpuscular Volume 97 fL (80-97); Mean Platelet Volume 7.6 fL (7.4-10.4); Nucleated Red Blood Cells % 0; Platelet Count 445 10^3/ul (150-450); Red Blood Count 3.52 10^6/ul (4.00-5.40); Red Cell Distribution Width 13 % (10.5-15); White Blood Count 14.4 10^3/ul (3.5-10.8)
[2018-09-20 09:12] LABS: BUN/Creatinine Ratio 18.5 (8-20); Calcium 9.1 mg/dL (8.6-10.3); EGFR African American 140.3 (>60); Potassium 4.3 mmol/L (3.5-5.0)
[2018-09-20] MEDS: Levofloxacin 750 MG IVPREMIX(* 750 MG/150 ML BAG IVPB SCH (10:42)
[2018-09-20] MEDS ORDERED: Acetaminophen TAB* 325 MG PO PRN (11:25)
[2018-09-20] MEDS ORDERED: Polyethylene Glycol 3350* 17 GM PACKET PO PRN (11:27)
[2018-09-20] MEDS ORDERED: Ketorolac INJ* 30 MG/ML 1 ML VIAL IV PUSH PRN (11:32)
[2018-09-20] MEDS: Morphine INJ* 2 MG/ML 1 ML SYRINGE (TWO MG - NEW SYRINGE VERSION) IV PRN ×2 (13:30→20:07)
--- NOTE | 2018-09-20 15:04 | PN ---
Subjective Date of Service: 09/20/18 Interval History: Still with pain but only when coughing - mostly over R mid-back. Also reporting mild SOB but improved from yesterday. Slept well through the night. Objective Active Medications: Acetaminophen (Tylenol Tab*) 650 mg PO Q6H PRN PRN Reason: mild pain Enoxaparin Sodium (Lovenox(*)) 40 mg SUBCUT Q24H [facility] Last Admin: 09/19/18 16:48 Dose: 40 mg Guaifenesin/Dextromethorphan (Robitussin Dm*) 10 ml PO Q6H PRN PRN Reason: COUGH Levofloxacin/Dextrose (Levaquin 750 Mg Ivpremix(*)) 750 mg in 150 mls @ 100 mls /hr IVPB Q24H [facility] Last Admin: 09/20/18 10:42 Dose: 100 mls/hr Ketorolac Tromethamine (Toradol Inj*) 30 mg IV PUSH Q6H PRN PRN Reason: moderate pain Stop: 09/21/18 11:31 Morphine Sulfate (Morphine Inj ((Syringe))*) 2 mg IV Q6H PRN PRN Reason: SEVERE PAIN Last Admin: 09/20/18 13:30 Dose: 2 mg Polyethylene Glycol/Electrolytes (Miralax*) 17 gm PO DAILY PRN PRN Reason: CONSTIPATION Venlafaxine HCl (Effexor Xr Cap*) 75 mg PO BEDTIME [facility]; Protocol Last Admin: 09/19/18 20:01 Dose: 75 mg Vital Signs - 8 hr 09/20/18 09/20/18 09/20/18 07:56 08:06 08:09 Temperature 99.7 F Pulse Rate 95 84 Respiratory 18 24 22 Rate Blood Pressure 179/58 162/76 (mmHg) O2 Sat by Pulse 94 Oximetry 09/20/18 09/20/18 09/20/18 08:19 08:23 08:40 Temperature Pulse Rate Respiratory 18 22 20 Rate Blood Pressure (mmHg) O2 Sat by Pulse Oximetry 09/20/18 09/20/18 09/20/18 11:05 11:10 13:25 Temperature 100.2 F 98.9 F 98.2 F Pulse Rate 92 93 Respiratory 18 28 Rate Blood Pressure 142/59 145/61 (mmHg) O2 Sat by Pulse 92 92 Oximetry 09/20/18 09/20/18 09/20/18 13:30 13:34 13:59 Temperature Pulse Rate Respiratory 28 20 18 Rate Blood Pressure (mmHg) O2 Sat by Pulse Oximetry Oxygen Devices in Use Now: Nasal Cannula Result Diagrams: 09/20/18 06:30 09/20/18 06:30 Additional Lab and Data: Laboratory Results - last 24 hr 09/18/18 09/19/18 09/19/18 15:52 04:35 04:36 WBC 14.1 H RBC 3.75 L Hgb 11.9 L Hct 36 MCV 96 MCH 32 H MCHC 33 RDW 13 Plt Count 397 MPV 7.8 Neut % (Auto) 84.8 Lymph % (Auto) 7.8 [place] % (Auto) 5.0 Eos % (Auto) 1.4 Baso % (Auto) 1.0 Absolute Neuts (auto) 11.9 H Absolute Lymphs (auto) 1.1 Absolute Monos (auto) 0.7 Absolute Eos (auto) 0.2 Absolute Basos (auto) 0.1 Absolute Nucleated RBC 0 Nucleated RBC % 0 Sodium 128 L Potassium 4.2 Chloride 99 L Carbon Dioxide 20 L Anion Gap 9 BUN 15 Creatinine 0.72 Est GFR ( Amer) 100.7 Est GFR (Non-Af Amer) 83.2 BUN/Creatinine Ratio 20.8 H Glucose 96 Calcium 9.2 Lactate Dehydrogenase 196 C-Reactive Protein 310.25 H Total Protein 6.5 Fluid Cell Count Rvw By Microbiology and Other Data: Microbiology 09/17/18 13:46 Blood Venous Aerobic Blood Culture - Preliminary No Growth Day 2 09/17/18 13:46 Blood Venous Anaerobic Blood Culture - Preliminary No Growth Day 2 09/17/18 13:13 Blood Venous Aerobic Blood Culture - Preliminary No Growth Day 2 09/17/18 13:13 Blood Venous Anaerobic Blood Culture - Preliminary No Growth Day 2 09/18/18 15:52 Pleural Fluid Gram Stain - Final 09/18/18 15:52 Pleural Fluid Body Fluid Culture - Preliminary No Growth Day 1 09/17/18 21:05 Urine Urine Culture - Final No Growth (<1,000 CFU/mL) 09/17/18 21:05 Urine Legionella Urinary Antigen - Final Negative Legionella Antigen 09/17/18 21:05 Urine Streptococcus pneumoniae Ag Screen - Final Negative S. pneumo Antigen Assess/Plan/Problems-Billing Ms. Mcneil is a 58 year old woman with L breast invasive adenocarcinoma ER+/ [place]+/HER2 neg, active tobacco use, anxiety, who presents with subacute back pain and dyspnea. Imaging consistent with PNA c/b pleural effusion now s/p thoracentesis 09/18 with symptomatic improvement on Levaquin (pcn, cephalosporin allergy). - Patient Problems (1) Pneumonia Current Visit: Yes Comment: met SEPSIS 2 criteria on admission with tachypenia 26, acute hypoxic respiratory failure, tachycardia >90, leukocytosis. BCx NGTD (taken after abx). - continue Levaquin (09/17 - 09/23) - pain control with tylenol (mild), ketorolac (moderate), or morphine 2mg IV ( severe) prns - encourage guafenesin-DM prns - wean O2 as tolerated (2) Pleural effusion Comment: s/p diagnosistic and therapeutic thoracentesis on 09/18. Pleural fluid protein/LDH still pending. No e/o malignancy on cytology. Fluid culture graim stain negative. - appreciate Dr. Frances clark (3) Breast cancer Current Visit: Yes Comment: ER+/AK+/pps2syf negative. Not fully staged. Plan to follow-up with Dr. Yordan Ziegler (breast surgery at [facility]) and Dinah Chopra as outpatient. Pleural fluid cytology without e/o malignant cells. (4) Anxiety Comment: continue home venlafaxine (5) Smoker Comment: 1/2 ppd, 20 pack years. can add patch if requests. (6) DVT prophylaxis Current Visit: Yes Comment: continue LMWH subq daily (7) Full code status Current Visit: Yes Comment: Pt would want life sustaining interventions while there is a chance of meaningful recovery. Her is her HCP - paperwork filled out at home. Status and Disposition: pt prefers to return home on discharge pending resolution of hypoxic respiratory failure.
[2018-09-20] MEDS: Enoxaparin(*) 40 MG/0.4 ML SYR SUBCUT SCH (16:25)
[2018-09-20] MEDS: GuaiFENesin DM* 5 ML UDC PO PRN (16:30)
[2018-09-20 16:48] LABS: Lactate Dehydrogenase, BF 603 U/L
[2018-09-20] MEDS: Venlafaxine EXT RELEASE CAP* 75 MG PO SCH (20:06)
[2018-09-20] MEDS ORDERED: Albuterol/Ipratropium NEB.SOL* Albuterol 2.5 MG/Ipratropium 0.5 MG 3 ML INH ONE (20:24)
[2018-09-21] MEDS ORDERED: Albuterol/Ipratropium NEB.SOL* Albuterol 2.5 MG/Ipratropium 0.5 MG 3 ML INH PRN (05:05)
[2018-09-21] MEDS ORDERED: Albuterol/Ipratropium NEB.SOL* Albuterol 2.5 MG/Ipratropium 0.5 MG 3 ML ONE (05:12)
[2018-09-21] MEDS ORDERED: Furosemide IV* 10 MG/ML VIAL (40 MG) IV ONE (05:31)
--- NOTE | 2018-09-21 05:33 | PN ---
Progress Note - Progress Note Date of Service: 09/21/18 Note: Paged - Patient requiring higher O2 requirements - Patient sleeping on my encounter, did wake and c/o SOB. [place] b/l - CXR: worsening pulmonary edema. Lasix 40 mg IV given. On 10L currently. Will monitor closely. May need ICU for CPAP.
[2018-09-21 06:45] LABS: ABS Basophils 0 10^3/ul (0-0.2); ABS Eosinophils 0.1 10^3/ul (0-0.6); ABS Lymphocytes 0.7 10^3/ul (1.0-4.8); ABS Monocytes 1.1 10^3/ul (0-0.8); ABS Neutrophils 11.6 10^3/ul (1.5-7.7); ABS Nucleated RBC 0 10^3/ul; Hematocrit 32 % (35-47); Hemoglobin 10.8 g/dl (12.0-16.0); Lymphocyte % 5.5 %; Mean Corpuscular HGB Conc 33 g/dl (31-36); Mean Corpuscular Hemoglobin 32 pg (27-31); Mean Corpuscular Volume 94 fL (80-97); Mean Platelet Volume 7.3 fL (7.4-10.4); Nucleated Red Blood Cells % 0; Platelet Count 460 10^3/ul (150-450); Red Blood Count 3.44 10^6/ul (4.00-5.40); Red Cell Distribution Width 13 % (10.5-15); White Blood Count 13.6 10^3/ul (3.5-10.8)
[2018-09-21 07:01] LABS: BUN/Creatinine Ratio 12.7 (8-20); Calcium 9.3 mg/dL (8.6-10.3); EGFR African American 137.4 (>60); EGFR Non-African American 113.5 (>60); Potassium 3.6 mmol/L (3.5-5.0)
[2018-09-21] MEDS ORDERED: Senna TAB PO ONE (09:35)
[2018-09-21] MEDS: Levofloxacin 750 MG IVPREMIX(* 750 MG/150 ML BAG IVPB SCH (10:22)
[2018-09-21] MEDS: Enoxaparin(*) 40 MG/0.4 ML SYR SUBCUT SCH (16:39)
--- NOTE | 2018-09-21 18:22 | PN ---
Progress Note - Progress Note Date of Service: 09/21/18 - Pulm f/u note Note: Pt seen and examined at bedside. O/n events noted. Pt had worsening of SOB and hypoxia this am and O2 was increased. CXR was suggestive of possibel overload and was given Lasix. Pt reports slight improvement in SOB. Has been having bouts of cough. She is getting winded with coughing spells. Active Medications Generic Name Dose Route Start Last Admin Trade Name Freq PRN Reason Stop Dose Admin Acetaminophen 650 mg 09/20/18 11:25 Tylenol Tab* PO Q6H PRN mild pain Albuterol/Ipratropium 1 neb 09/21/18 05:05 09/21/18 05:13 Duoneb (Albuterol 2.5 Mg/Ipratropium 0.5 Mg) INH 1 neb Q4H PRN Administration SOB/WHEEZING Enoxaparin Sodium 40 mg 09/18/18 17:00 09/21/18 16:39 Lovenox(*) SUBCUT 40 mg Q24H [facility]OR Administration Guaifenesin/Dextromethorphan 10 ml 09/19/18 17:01 09/20/18 16:30 Robitussin Dm* PO 10 ml Q6H PRN Administration COUGH Levofloxacin/Dextrose 750 mg in 150 mls @ 100 mls/hr 09/18/18 11:30 09/21/18 10:22 Levaquin 750 Mg Ivpremix(*) IVPB 100 mls/hr Q24H [facility]OR Administration Morphine Sulfate 2 mg 09/20/18 11:33 09/20/18 20:07 Morphine Inj ((Syringe))* IV 2 mg Q6H PRN Administration SEVERE PAIN Polyethylene Glycol/Electrolytes 17 gm 09/20/18 11:27 Miralax* PO DAILY PRN CONSTIPATION Venlafaxine HCl 75 mg 09/17/18 21:00 09/20/18 20:06 Effexor Xr Cap* PO 75 mg BEDTIME [facility] Administration Protocol Vital Signs Temp Pulse Resp BP Pulse Ox 98.0 F 79 20 145/54 97 09/21/18 15:39 09/21/18 15:39 09/21/18 15:39 09/21/18 15:39 09/21/18 15:39 O/E: Pt in NAD HEENT: PERRLA, NO JVD Lungs: Diminished at rt base, no wheeze CVS: S1, S2+, regular Abd: Soft, BS+ Ext: Normal ROM Neuro: No focal deficits Laboratory Results - last 24 hr 09/21/18 09/21/18 06:14 06:14 WBC 13.6 H RBC 3.44 L Hgb 10.8 L Hct 32 L MCV 94 MCH 32 H MCHC 33 RDW 13 Plt Count 460 H MPV 7.3 L Neut % (Auto) 84.9 Lymph % (Auto) 5.5 [place] % (Auto) 8.3 Eos % (Auto) 1.0 Baso % (Auto) 0.3 Absolute Neuts (auto) 11.6 H Absolute Lymphs (auto) 0.7 L Absolute Monos (auto) 1.1 H Absolute Eos (auto) 0.1 Absolute Basos (auto) 0 Absolute Nucleated RBC 0 Nucleated RBC % 0 Sodium 133 L Potassium 3.6 Chloride 100 L Carbon Dioxide 24 Anion Gap 9 BUN 7 Creatinine 0.55 Est GFR ( Amer) 137.4 Est GFR (Non-Af Amer) 113.5 BUN/Creatinine Ratio 12.7 Glucose 108 H Calcium 9.3 I/R: 58 year old female 1/2 ppd smoker(20 pack years), daily EtOH, anxiety, recent biopsy of left breast mass invasive adenocarcinoma ER+/IA+/ahe7gfz negative admitted for evaluation of back pain, shortness of breath. R>L pneumonia with pleural effusion/possible abscess. Pt underwent thoracentesis with removal of 600ml of turbid fluid Cytology negative for malignancy, evidence of inflammation, exudative fluid Pt deteriorated last night, hypoxia worsened Pt currently requiring increased FiO2 CXR with evidence of increased air space opacities Consider rpt CT chest to evaluate further Pt on abx Afebrile F/u Cx on pl fluid Titrate FiO2 as tolerated Incentive spirometry and instructions on usage provided OOB to chair
--- NOTE | 2018-09-21 19:24 | PN ---
Subjective Interval History: Pt with worsened dyspnea and hypoxia overnight. Given IV lasix and symptommatically improved by morning. Tearful when discussing discharge as patient wants to go home. Objective Active Medications: Acetaminophen (Tylenol Tab*) 650 mg PO Q6H PRN PRN Reason: mild pain Albuterol/Ipratropium (Duoneb (Albuterol 2.5 Mg/Ipratropium 0.5 Mg)) 1 neb INH Q4H PRN PRN Reason: SOB/WHEEZING Last Admin: 09/21/18 05:13 Dose: 1 neb Enoxaparin Sodium (Lovenox(*)) 40 mg SUBCUT Q24H [facility] Last Admin: 09/21/18 16:39 Dose: 40 mg Guaifenesin/Dextromethorphan (Robitussin Dm*) 10 ml PO Q6H PRN PRN Reason: COUGH Last Admin: 09/20/18 16:30 Dose: 10 ml Levofloxacin/Dextrose (Levaquin 750 Mg Ivpremix(*)) 750 mg in 150 mls @ 100 mls /hr IVPB Q24H [facility] Last Admin: 09/21/18 10:22 Dose: 100 mls/hr Morphine Sulfate (Morphine Inj ((Syringe))*) 2 mg IV Q6H PRN PRN Reason: SEVERE PAIN Last Admin: 09/20/18 20:07 Dose: 2 mg Polyethylene Glycol/Electrolytes (Miralax*) 17 gm PO DAILY PRN PRN Reason: CONSTIPATION Venlafaxine HCl (Effexor Xr Cap*) 75 mg PO BEDTIME [facility]; Protocol Last Admin: 09/20/18 20:06 Dose: 75 mg Vital Signs - 8 hr 09/21/18 09/21/18 11:28 15:39 Temperature 98.1 F 98.0 F Pulse Rate 78 79 Respiratory 24 20 Rate Blood Pressure 149/63 145/54 (mmHg) O2 Sat by Pulse 92 97 Oximetry Oxygen Devices in Use Now: OxyMask Appearance: comfortable on mask when turned down to 3L, not in acute distress, speaking in full sentences, pleasant Ears/Nose/Mouth/Throat: Mucous Membranes Moist Respiratory: - - crackles worse on R base Abdominal: NL Sounds; No Tenderness; No Distention Extremities: No Edema Neurological: Alert and Oriented x 3 Result Diagrams: 09/21/18 06:14 09/21/18 06:14 Additional Lab and Data: Microbiology 09/17/18 13:46 Blood Venous Aerobic Blood Culture - Preliminary No Growth Day 4 09/18/18 15:52 Pleural Fluid Body Fluid Culture - Preliminary No Growth Day 3 09/17/18 21:05 Urine Legionella Urinary Antigen - Final Negative Legionella Antigen 09/17/18 21:05 Urine Streptococcus pneumoniae Ag Screen - Final Negative S. pneumo Antigen Assess/Plan/Problems-Billing Ms. cMneil is a 58 year old woman with L breast invasive adenocarcinoma ER+/ [place]+/HER2 neg pending staging and treatment, active tobacco use, anxiety, who presents with subacute back pain and dyspnea. Imaging consistent with PNA c/b pleural effusion and c/f abscess now s/p thoracentesis 09/18 with symptomatic improvement on Levaquin (pcn, cephalosporin allergy). - Patient Problems (1) Pneumonia Comment: s/p thora 09/18. Plueral fluid without malignancy on cytology, cultures negative to date, and Light criteria exudative. CT PE on admission without e/o PE. - pulm following, appreciate recs, will order chest CT tomorrow if not improved - continue Levaquin (09/17 - 09/23) - pain control with tylenol (mild), morphine 2mg IV (mod/severe) prns - encourage guafenesin-DM prns - wean O2 as tolerated - encourage out of bed (2) Breast cancer Current Visit: Yes Comment: ER+/[place]+/ucv6zvf negative. Not fully staged. Plan to follow-up with Dr. Yordan Ziegler (breast surgery at [facility]) and Dinah Chopra as outpatient. Pleural fluid cytology without e/o malignant cells. (3) Anxiety Comment: continue home venlafaxine (4) Smoker Comment: 1/2 ppd, 20 pack years. can add patch if requests. (5) DVT prophylaxis Comment: continue LMWH subq daily (6) Full code status Comment: Pt would want life sustaining interventions while there is a chance of meaningful recovery. Her is her HCP - paperwork filled out at home. Status and Disposition: pt prefers to return home on discharge pending titration off supplemental O2
[2018-09-21] MEDS: Morphine INJ* 2 MG/ML 1 ML SYRINGE (TWO MG - NEW SYRINGE VERSION) IV PRN (19:45)
[2018-09-21] MEDS: Venlafaxine EXT RELEASE CAP* 75 MG PO SCH (19:53)
[2018-09-21] MEDS: GuaiFENesin DM* 5 ML UDC PO PRN (19:54)
[2018-09-22 07:28] LABS: ABS Basophils 0.1 10^3/ul (0-0.2); ABS Eosinophils 0.2 10^3/ul (0-0.6); ABS Lymphocytes 1.1 10^3/ul (1.0-4.8); ABS Monocytes 1.2 10^3/ul (0-0.8); ABS Neutrophils 9.8 10^3/ul (1.5-7.7); ABS Nucleated RBC 0 10^3/ul; Eosinophil % 1.9 %; Hematocrit 34 % (35-47); Hemoglobin 11.3 g/dl (12.0-16.0); Mean Corpuscular HGB Conc 33 g/dl (31-36); Mean Corpuscular Hemoglobin 31 pg (27-31); Mean Corpuscular Volume 95 fL (80-97); Mean Platelet Volume 7.5 fL (7.4-10.4); Nucleated Red Blood Cells % 0; Platelet Count 493 10^3/ul (150-450); Red Blood Count 3.62 10^6/ul (4.00-5.40); Red Cell Distribution Width 14 % (10.5-15); White Blood Count 12.5 10^3/ul (3.5-10.8)
[2018-09-22] MEDS ORDERED: Furosemide IV* 10 MG/ML VIAL (40 MG) IV ONE (07:30)
[2018-09-22] MEDS ORDERED: Senna TAB PO PRN (07:32)
[2018-09-22] MEDS: Polyethylene Glycol 3350* 17 GM PACKET PO SCH (08:32)
[2018-09-22] MEDS: amLODIPine TAB* 5 MG PO SCH (10:52)
[2018-09-22] MEDS: Levofloxacin 750 MG IVPREMIX(* 750 MG/150 ML BAG IVPB SCH (11:32)
--- NOTE | 2018-09-22 13:18 | PN ---
Progress Note - Progress Note Date of Service: 09/22/18 - Pulm f/u note Note: Pt seen and examined at bedside. Pt reports feeling better, wanting to go home. Having intermittent cough. No fevers. Active Medications Generic Name Dose Route Start Last Admin Trade Name Freq PRN Reason Stop Dose Admin Acetaminophen 650 mg 09/20/18 11:25 Tylenol Tab* PO Q6H PRN mild pain Albuterol/Ipratropium 1 neb 09/21/18 05:05 09/21/18 05:13 Duoneb (Albuterol 2.5 Mg/Ipratropium 0.5 Mg) INH 1 neb Q4H PRN Administration SOB/WHEEZING Amlodipine Besylate 5 mg 09/22/18 09:00 09/22/18 10:52 Norvasc Tab* PO 5 mg DAILY FLOR Administration Enoxaparin Sodium 40 mg 09/18/18 17:00 09/21/18 16:39 Lovenox(*) SUBCUT 40 mg Q24H FLOR Administration Guaifenesin/Dextromethorphan 10 ml 09/19/18 17:01 09/21/18 19:54 Robitussin Dm* PO 10 ml Q6H PRN Administration COUGH Levofloxacin/Dextrose 750 mg in 150 mls @ 100 mls/hr 09/18/18 11:30 09/22/18 11:32 Levaquin 750 Mg Ivpremix(*) IVPB 100 mls/hr Q24H [facility]OR Administration Morphine Sulfate 2 mg 09/20/18 11:33 09/21/18 19:45 Morphine Inj ((Syringe))* IV 2 mg Q6H PRN Administration SEVERE PAIN Polyethylene Glycol/Electrolytes 17 gm 09/22/18 09:00 09/22/18 08:32 Miralax* PO Not Given DAILY FLOR Senna 1 tab 09/22/18 07:32 Senokot Tab* PO DAILY PRN CONSTIPATION Venlafaxine HCl 75 mg 09/17/18 21:00 09/21/18 19:53 Effexor Xr Cap* PO 75 mg BEDTIME FLOR Administration Protocol Vital Signs Temp Pulse Resp BP Pulse Ox 98.5 F 78 20 140/49 92 09/22/18 07:46 09/22/18 07:46 09/22/18 08:00 09/22/18 07:46 09/22/18 07:46 O/E: Pt in NAD, sitting up in bed, at bedside HEENT: PERRLA, NO JVD Lungs: Diminished at rt base, no wheeze CVS: S1, S2+, regular Abd: Soft, BS+ Ext: Normal ROM Neuro: No focal deficits Skin: No rash Laboratory Results - last 24 hr 09/22/18 06:37 WBC 12.5 H RBC 3.62 L Hgb 11.3 L Hct 34 L MCV 95 MCH 31 MCHC 33 RDW 14 Plt Count 493 H MPV 7.5 Neut % (Auto) 78.4 Lymph % (Auto) 9.0 [place] % (Auto) 9.5 Eos % (Auto) 1.9 Baso % (Auto) 1.2 Absolute Neuts (auto) 9.8 H Absolute Lymphs (auto) 1.1 Absolute Monos (auto) 1.2 H Absolute Eos (auto) 0.2 Absolute Basos (auto) 0.1 Absolute Nucleated RBC 0 Nucleated RBC % 0 I/R: 58 year old female 1/2 ppd smoker(20 pack years), daily EtOH, anxiety, recent biopsy of left breast mass invasive adenocarcinoma ER+/AL+/xgq4ffy negative admitted for evaluation of back pain, shortness of breath. R>L pneumonia with pleural effusion/possible abscess. Pt with acute worsening 2 days back. Pt underwent thoracentesis with removal of 600ml of turbid fluid Cytology negative for malignancy, evidence of inflammation, exudative fluid, cx negative to date FiO2 requirements going down CXR with evidence of increased air space opacities-? fluid overload Wikll hold off on rpt CT chest Pt on abx Afebrile F/u Cx on pl fluid Titrate FiO2 as tolerated Assess O2 requirements prior to d/c Incentive spirometry and instructions on usage provided OOB to chair pt wanting to go home, agreed to stay 1 more day Will f/u as out pt
[2018-09-22] MEDS: Enoxaparin(*) 40 MG/0.4 ML SYR SUBCUT SCH (17:29)
--- NOTE | 2018-09-22 18:34 | PN ---
Subjective Interval History: Pt now s/p second dose of IV furosemide and continuing to symptomatically improve, although still requiring supplemental O2. Leukocytosis improving. Decision made to hold off on Chest CT. Pt reports not getting out of bed for 3 days - discussed importance of getting up and also needs to use incentive spirometer more. Had very large BM recently and is feeling a lot better. Objective Active Medications: Acetaminophen (Tylenol Tab*) 650 mg PO Q6H PRN PRN Reason: mild pain Albuterol/Ipratropium (Duoneb (Albuterol 2.5 Mg/Ipratropium 0.5 Mg)) 1 neb INH Q4H PRN PRN Reason: SOB/WHEEZING Last Admin: 09/21/18 05:13 Dose: 1 neb Amlodipine Besylate (Norvasc Tab*) 5 mg PO DAILY [facility] Last Admin: 09/22/18 10:52 Dose: 5 mg Enoxaparin Sodium (Lovenox(*)) 40 mg SUBCUT Q24H [facility] Last Admin: 09/22/18 17:29 Dose: 40 mg Guaifenesin/Dextromethorphan (Robitussin Dm*) 10 ml PO Q6H PRN PRN Reason: COUGH Last Admin: 09/21/18 19:54 Dose: 10 ml Levofloxacin/Dextrose (Levaquin 750 Mg Ivpremix(*)) 750 mg in 150 mls @ 100 mls /hr IVPB Q24H [facility] Last Admin: 09/22/18 11:32 Dose: 100 mls/hr Morphine Sulfate (Morphine Inj ((Syringe))*) 2 mg IV Q6H PRN PRN Reason: SEVERE PAIN Last Admin: 09/21/18 19:45 Dose: 2 mg Polyethylene Glycol/Electrolytes (Miralax*) 17 gm PO DAILY [facility] Last Admin: 09/22/18 08:32 Dose: Not Given Senna (Senokot Tab*) 1 tab PO DAILY PRN PRN Reason: CONSTIPATION Venlafaxine HCl (Effexor Xr Cap*) 75 mg PO BEDTIME [facility]; Protocol Last Admin: 09/21/18 19:53 Dose: 75 mg Oxygen Devices in Use Now: Nasal Cannula, OxyMask Appearance: well appearing, conversant and pleasant, speaking in full sentences Respiratory: - - decreased BS at right base, otherwise CTAB Abdominal: NL Sounds; No Tenderness; No Distention Extremities: No Edema Result Diagrams: 09/22/18 06:37 09/21/18 06:14 Additional Lab and Data: Microbiology 09/17/18 13:46 Blood Venous Aerobic Blood Culture - Preliminary No Growth Day 4 09/18/18 15:52 Pleural Fluid Body Fluid Culture - Preliminary No Growth Day 3 09/17/18 21:05 Urine Legionella Urinary Antigen - Final Negative Legionella Antigen 09/17/18 21:05 Urine Streptococcus pneumoniae Ag Screen - Final Negative S. pneumo Antigen Microbiology and Other Data: Microbiology 09/17/18 13:46 Blood Venous Aerobic Blood Culture - Preliminary No Growth Day 2 09/17/18 13:46 Blood Venous Anaerobic Blood Culture - Preliminary No Growth Day 2 09/17/18 13:13 Blood Venous Aerobic Blood Culture - Preliminary No Growth Day 2 09/17/18 13:13 Blood Venous Anaerobic Blood Culture - Preliminary No Growth Day 2 09/18/18 15:52 Pleural Fluid Gram Stain - Final 09/18/18 15:52 Pleural Fluid Body Fluid Culture - Preliminary No Growth Day 1 09/17/18 21:05 Urine Urine Culture - Final No Growth (<1,000 CFU/mL) 09/17/18 21:05 Urine Legionella Urinary Antigen - Final Negative Legionella Antigen 09/17/18 21:05 Urine Streptococcus pneumoniae Ag Screen - Final Negative S. pneumo Antigen Assess/Plan/Problems-Billing Ms. Mcneil is a 58 year old woman with L breast invasive adenocarcinoma ER+/ [place]+/HER2 neg pending staging and treatment, active tobacco use, anxiety, who presents with subacute back pain and dyspnea, found to have PNA c/b pleural effusion and c/f abscess now s/p thoracentesis 09/18 with symptomatic improvement on Levaquin (pcn, cephalosporin allergy) and a couple doses of furosemide. - Patient Problems (1) Pneumonia Comment: s/p thora 09/18. Plueral fluid without malignancy on cytology, cultures negative to date, and Light criteria exudative. CT PE on admission without e/o PE. - pulm following, appreciate recs, will order chest CT tomorrow if not improved - continue Levaquin (09/17 - 09/23) - s/p furosemide IV x 2 - pain control with tylenol (mild), morphine 2mg IV (mod/severe) prns - encourage guafenesin-DM prns - wean O2 as tolerated - encourage out of bed, IS (2) Breast cancer Comment: ER+/IA+/boo6qrt negative. Not fully staged. Plan to follow-up with Dr. Yordan Ziegler (breast surgery at [facility]) and Dinah Chopra as outpatient. Pleural fluid cytology without e/o malignant cells. (3) Anxiety Comment: continue home venlafaxine (4) Hypertension Comment: started on amlodipine 5mg today for repeatedly elevated BP (5) Smoker Comment: 1/2 ppd, 20 pack years. can add patch if requests. (6) DVT prophylaxis Comment: continue LMWH subq daily (7) Full code status Comment: Pt would want life sustaining interventions while there is a chance of meaningful recovery. Her is her HCP - paperwork filled out at home. Status and Disposition: pt prefers to return home on discharge pending titration off supplemental O2
[2018-09-22] MEDS: GuaiFENesin DM* 5 ML UDC PO PRN (20:05)
[2018-09-22] MEDS: Venlafaxine EXT RELEASE CAP* 75 MG PO SCH (20:05)
[2018-09-23] MEDS ORDERED: hydrALAZINE IV* 20 MG/ML VIAL IV SLOW PU PRN (04:21)
[2018-09-23] MEDS: amLODIPine TAB* 5 MG PO SCH (08:55)
[2018-09-23] MEDS: Polyethylene Glycol 3350* 17 GM PACKET PO SCH (08:56)
[2018-09-23 09:33] LABS: Hematocrit 37 % (35-47); Hemoglobin 12.6 g/dl (12.0-16.0); Mean Corpuscular HGB Conc 34 g/dl (31-36); Mean Corpuscular Hemoglobin 32 pg (27-31); Mean Corpuscular Volume 94 fL (80-97); Mean Platelet Volume 7.2 fL (7.4-10.4); Platelet Count 491 10^3/ul (150-450); Red Blood Count 3.97 10^6/ul (4.00-5.40); Red Cell Distribution Width 14 % (10.5-15); White Blood Count 11.6 10^3/ul (3.5-10.8)
[2018-09-23 09:34] LABS: BUN/Creatinine Ratio 15.1 (8-20); Calcium 9.1 mg/dL (8.6-10.3); EGFR African American 143.4 (>60); EGFR Non-African American 118.5 (>60); Magnesium 1.8 mg/dL (1.9-2.7); Potassium 3.6 mmol/L (3.5-5.0)
[2018-09-23 10:00] LABS: ABS Basophils 0.1 10^3/ul (0-0.2); ABS Eosinophils 0.2 10^3/ul (0-0.6); ABS Lymphocytes 0.9 10^3/ul (1.0-4.8); ABS Monocytes 1.2 10^3/ul (0-0.8); ABS Neutrophils 9.1 10^3/ul (1.5-7.7)
[2018-09-23 10:02] LABS: Immature Granulocytes 2 % (0-9); Lymphocytes % 12 %; Metamyelocytes % 2 % (0-2); Monocytes % 6 %; Neutrophil % 78 %
[2018-09-23 10:03] LABS: ABS Eosinophils 0.2 10^3/ul (0-0.6); ABS Neutrophils 9.3 10^3/ul (1.5-7.7)
--- NOTE | 2018-09-23 11:24 | PN ---
Subjective Date of Service: 09/23/18 Interval History: HD #5 on 09/23 58 year old woman with L breast invasive adenocarcinoma ER+/[place]+/HER2 neg pending staging and treatment, active tobacco use, anxiety, who presents with subacute back pain and dyspnea, found to have PNA c/b pleural effusion and c/f abscess now s/p thoracentesis 3/ Overnight no acute events, VSS weaned from 5L to 3L NC, +UOP and BM in 24 hours Labs reviewed, mild hypoNA, Mag 1.8 This morning, quite anxious, would like to go home. Tearful on interview, "sick and tired of being sick and tired." Pain free, tolerating diet, able to ambulate but still requiring O2. We discuss if she is willing to wear O2 at home and has appropriate follow up, would consider discharge as she is so upset she is even considering AMA. No GI or cardiac complaints, still mild [place]. Objective Active Medications: Acetaminophen (Tylenol Tab*) 650 mg PO Q6H PRN PRN Reason: mild pain Albuterol/Ipratropium (Duoneb (Albuterol 2.5 Mg/Ipratropium 0.5 Mg)) 1 neb INH Q4H PRN PRN Reason: SOB/WHEEZING Last Admin: 09/21/18 05:13 Dose: 1 neb Amlodipine Besylate (Norvasc Tab*) 5 mg PO DAILY [facility] Last Admin: 09/23/18 08:55 Dose: 5 mg Enoxaparin Sodium (Lovenox(*)) 40 mg SUBCUT Q24H [facility] Last Admin: 09/22/18 17:29 Dose: 40 mg Guaifenesin/Dextromethorphan (Robitussin Dm*) 10 ml PO Q6H PRN PRN Reason: COUGH Last Admin: 09/22/18 20:05 Dose: 10 ml Hydralazine HCl (Apresoline Iv*) 10 mg IV SLOW PU Q6H PRN PRN Reason: htn Last Admin: 09/23/18 07:22 Dose: 10 mg Levofloxacin/Dextrose (Levaquin 750 Mg Ivpremix(*)) 750 mg in 150 mls @ 100 mls /hr IVPB Q24H [facility] Last Admin: 09/22/18 11:32 Dose: 100 mls/hr Morphine Sulfate (Morphine Inj ((Syringe))*) 2 mg IV Q6H PRN PRN Reason: SEVERE PAIN Last Admin: 09/21/18 19:45 Dose: 2 mg Polyethylene Glycol/Electrolytes (Miralax*) 17 gm PO DAILY [facility] Last Admin: 09/23/18 08:56 Dose: Not Given Senna (Senokot Tab*) 1 tab PO DAILY PRN PRN Reason: CONSTIPATION Venlafaxine HCl (Effexor Xr Cap*) 75 mg PO BEDTIME [facility]; Protocol Last Admin: 09/22/18 20:05 Dose: 75 mg Vital Signs - 8 hr 09/23/18 09/23/18 09/23/18 03:28 03:33 08:00 Temperature 98.4 F Pulse Rate 83 80 Respiratory 18 22 Rate Blood Pressure 173/76 175/70 (mmHg) O2 Sat by Pulse 94 94 Oximetry 09/23/18 08:10 Temperature 98.6 F Pulse Rate 79 Respiratory 22 Rate Blood Pressure 145/54 (mmHg) O2 Sat by Pulse 94 Oximetry Oxygen Devices in Use Now: Nasal Cannula, OxyMask Appearance: Pleasant woman, anxious Eyes: No Scleral Icterus, PERRLA Ears/Nose/Mouth/Throat: NL Teeth, Lips, Gums, Mucous Membranes Moist Neck: NL Appearance and Movements; NL JVP Respiratory: Symmetrical Chest Expansion and Respiratory Effort, - - No work of breathing , CTABL with exception of R lung base Cardiovascular: NL Sounds; No Murmurs; No JVD, RRR Abdominal: NL Sounds; No Tenderness; No Distention, No Hepatosplenomegaly Lymphatic: No Cervical Adenopathy Extremities: No Edema Skin: No Rash or Ulcers Neurological: Alert and Oriented x 3 Result Diagrams: 09/23/18 08:49 09/23/18 08:48 Additional Lab and Data: Microbiology 09/17/18 13:46 Blood Venous Aerobic Blood Culture - Preliminary No Growth Day 4 09/18/18 15:52 Pleural Fluid Body Fluid Culture - Preliminary No Growth Day 3 09/17/18 21:05 Urine Legionella Urinary Antigen - Final Negative Legionella Antigen 09/17/18 21:05 Urine Streptococcus pneumoniae Ag Screen - Final Negative S. pneumo Antigen Microbiology and Other Data: Microbiology 09/17/18 13:46 Blood Venous Aerobic Blood Culture - Preliminary No Growth Day 2 09/17/18 13:46 Blood Venous Anaerobic Blood Culture - Preliminary No Growth Day 2 09/17/18 13:13 Blood Venous Aerobic Blood Culture - Preliminary No Growth Day 2 09/17/18 13:13 Blood Venous Anaerobic Blood Culture - Preliminary No Growth Day 2 09/18/18 15:52 Pleural Fluid Gram Stain - Final 09/18/18 15:52 Pleural Fluid Body Fluid Culture - Preliminary No Growth Day 1 09/17/18 21:05 Urine Urine Culture - Final No Growth (<1,000 CFU/mL) 09/17/18 21:05 Urine Legionella Urinary Antigen - Final Negative Legionella Antigen 09/17/18 21:05 Urine Streptococcus pneumoniae Ag Screen - Final Negative S. pneumo Antigen Assess/Plan/Problems-Billing Ms. Mcneil is a 58 year old woman with L breast invasive adenocarcinoma ER+/ [place]+/HER2 neg pending staging and treatment, active tobacco use, anxiety, who presents with subacute back pain and dyspnea, found to have PNA c/b pleural effusion and c/f abscess now s/p thoracentesis 09/18 with symptomatic improvement on Levaquin (pcn, cephalosporin allergy) and a couple doses of furosemide. - Patient Problems (1) Pneumonia Current Visit: Yes Status: Acute Code(s): J18.9 - PNEUMONIA, UNSPECIFIED ORGANISM SNOMED Code(s): 005858226 Comment: s/p thora 09/18. Plueral fluid without malignancy on cytology, cultures negative to date, and Light criteria exudative. CT PE on admission without e/o PE. - pulm following, appreciate recs, they are ok with d/c, will order repeat CXR for interval exam as pt would like to go home today - continue Levaquin (09/17 - 09/23) , will d/c today - s/p furosemide IV x 2, will give addnl dose x 1 now - pain control with tylenol (mild), will d/c morphine as pt wants to go home - encourage guafenesin-DM prns - wean O2 as tolerated, she would like to be d.c on home O2 and I will work with care coordination - encourage out of bed, IS (2) Pleural effusion Current Visit: Yes Status: Acute Code(s): J90 - PLEURAL EFFUSION, NOT ELSEWHERE CLASSIFIED SNOMED Code(s): 15733213 Comment: s/p diagnosistic and therapeutic thoracentesis on 09/18. Pleural fluid protein/LDH still pending. No e/o malignancy on cytology. Fluid culture graim stain negative. - appreciate Dr. Frances clark, who has also cleared the pt for d/c - Repeat CXR now for interval exam (3) Hypertension Current Visit: Yes Status: Acute Code(s): I10 - ESSENTIAL (PRIMARY) HYPERTENSION SNOMED Code(s): 94035301 Comment: started on amlodipine 5mg today for repeatedly elevated BP (4) Anxiety Current Visit: Yes Status: Acute Code(s): F41.9 - ANXIETY DISORDER, UNSPECIFIED SNOMED Code(s): 28282479 Comment: continue home venlafaxine (5) Breast cancer Current Visit: Yes Status: Acute Code(s): C50.919 - MALIGNANT NEOPLASM OF UNSP SITE OF UNSPECIFIED FEMALE BREAST SNOMED Code(s): 907545650 Comment: ER+/[place]+/bwn1ckg negative. Not fully staged. Plan to follow-up with Dr. Yordan Ziegler (breast surgery at [facility]) and Dinah Chopra as outpatient. Pleural fluid cytology without e/o malignant cells. (6) Full code status Current Visit: Yes Status: Acute Code(s): Z78.9 - OTHER SPECIFIED HEALTH STATUS SNOMED Code(s): 245665946 Comment: Pt would want life sustaining interventions while there is a chance of meaningful recovery. Her is her HCP - paperwork filled out at home. (7) DVT prophylaxis Current Visit: Yes Status: Inactive Code(s): DBF9019 - SNOMED Code(s): 423867559 Comment: continue LMWH subq daily Status and Disposition: pt prefers to return home on discharge pending avalability of home O2
[2018-09-23] MEDS: Levofloxacin 750 MG IVPREMIX(* 750 MG/150 ML BAG IVPB SCH (12:17)
[2018-09-23] MEDS ORDERED: Furosemide IV* 10 MG/ML VIAL (40 MG) IV ONE (12:19)
[2018-09-23 12:56] VITALS: BP 124/61
--- NOTE | 2018-09-23 21:20 | DS ---
DISCHARGE SUMMARY: DATE OF ADMISSION: 09/17/18 DATE OF DISCHARGE: 09/23/18 PRIMARY DIAGNOSES: 1. Pneumonia, right-sided. 2. Pleural effusion, right-sided. 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 MEDICATIONS ON DISCHARGE: 1. Effexor 75 mg p.o. q.p.m. 2. Amlodipine 5 mg p.o. daily. 3. ProAir 1 puff q.4 hours p.r.n. for shortness of breath. Medications changes on this hospitalization are the addition of amlodipine 5 mg p.o. daily and the addition of albuterol. HOSPITAL COURSE AND PRESENTATION: This is a 58-year-old female with a past medical history of anxiety and newly diagnosed left breast cancer who presented to the emergency room on 09/17/18 with complaints of pain in left upper back that then radiated to her right back. Furthermore, she noted that this pain eventually became accompanied with dyspnea on exertion and discomfort with deep breath and because of her persistent shortness of breath, she presented to the emergency room where she was found to have a leukocytosis of 14, sinus tachycardia of 95 to 100, hypoxia to 89% on room air and a chest x-ray that showed moderate right pleural effusion and right upper lobe pneumonia. CRP was elevated at 143 and D-dimer was elevated at 548. In the emergency room, a CT chest angiogram was performed, which showed no definitive pulmonary embolus and air space disease was most concerning for right lower lobe pleural effusion and right upper lobe pneumonia and possible abscess of up to 1.6 cm. She was admitted to the hospitalist service for sepsis secondary to pneumonia causing acute hypoxic respiratory failure in the setting of recent breast cancer diagnosis and her hospital course by problem is as follows: 1. Pleural effusion. A thoracentesis was performed on 09/18/18, in Light's criteria, was found to have exudative process. Cytology was run on pleural body fluids, which did not show any cancer cells. Gram stain was negative. The patient tolerated procedure very well and repeat chest x-ray showed interval improvement of pleural effusion and mild pulmonary edema and residual right-sided upper lobe pneumonia. Pulmonology was consulted who continued to follow the patient. Just note that pleural effusion was 600 mL removed from the right lung. The patient continued to need supplemental oxygen throughout her hospital stay, although was weaned off by 09/23/18 to p.r.n. 2 to 3 L. Because the patient was quite anxious to go home and along with decision with pulmonology, the patient was discharged with home p.r.n. oxygen. 2. Pneumonia. Levaquin was given from 09/17/18 to 09/23/18 completing a course for community-acquired pneumonia. She had mild pulmonary edema associated with this pneumonia and she was given furosemide 40 mg IV 3 times. She used p.r.n. nebulizers, which she will be sent home on and as above, she did require supplemental oxygen on discharge for persistent hypoxemia to 88% while ambulating needing p.r.n. O2. 3. Hypertension. This is a new diagnosis for this patient, which is possibly secondary to anxiety, although because of persistent hypertension and systolics 160s to diastolics high 90s, she was started on amlodipine 5 mg daily and did very well with this. 4. Anxiety. Her home venlafaxine was continued. The patient did become quite anxious during the hospitalization and ultimately just felt that she wanted to go home despite currently not being fully weaned off of her oxygen. This is honored in an effort to prevent the patient from leaving against medical advice and she is a reliable historian and is willing for followup in outpatient setting with oncologist. 5. Breast cancer. She was just recently diagnosed and she is not fully staged. She has plan to follow up with Dr. Yordan Ziegler, who is a breast surgeon at [place] and Dr. Dinah Chopra as her oncologist as an outpatient. As above, pleural fluid cytology spell evidence of malignant cells. The patient was kept on Lovenox for DVT prophylaxis. PHYSICAL EXAM ON DAY OF DISCHARGE: The patient is comfortable with regular rate and rhythm. She can speak in full sentences without increased work of breathing. She has diminished air movement to right lung base only, but otherwise clear to auscultation. Her belly is soft and nontender. She moves all 4 limbs spontaneously. She has no evidence of peripheral edema. DIAGNOSTIC STUDIES/LAB DATA: Labs on day of discharge are notable for a leukocytosis of 11, hemoglobin of 12.6, hematocrit of 37, and platelets of 491. BMP is notable for a sodium of 132, potassium 3.6, chloride 97, carbon dioxide 26, BUN 8, creatinine 0.53, glucose 93. Magnesium 1.8. Micro done on this hospitalization showed pleural fluid with no growth to date and Gram stain negative. Urine culture was no growth to date and blood cultures were no growth to date. Imaging done during this hospitalization included a CTA of chest, which showed no pulmonary embolus, although did show right upper lobe pneumonia and right pleural effusion. Subsequent chest x-rays postprocedural were done, that showed resolution of pleural effusion and persistent interstitial markings concerning for infection and pulmonary edema. EKG was done, which showed that the patient was in sinus tachycardia without any evidence of ischemia. THINGS TO FOLLOW UP ON DISCHARGE: 1. Pneumonia and pleural effusion. The patient will need interval chest x- rays. Last chest x-ray was done on day of discharge on 09/23/18, which is still pending read and will be addended at time of dictation of this report, although it is reasonable to consider following up with repeat chest CT given the initial CTA showing a small ? abscess, although her repeat clinical exam with antibiotics and symptomatic treatment of her pneumonia showed marked improvement. 2. Breast cancer. Obviously, this patient needs to have staging and concurrent oncology workup, which she is already pursuing and has currently outpatient followup appointments for. 3. Hypertension. This is a new diagnosis for this patient. She is started on amlodipine 5 mg, maybe able to be discontinued if she is home and this is all anxiety induced, although her systolic blood pressures persistently being elevated are concerning for essential hypertension at baseline. We recommended that the patient follow up with her primary care provider who will be cc'd on this discharge, report who is Mona Booth, nurse practitioner and we have requested that she follow up with her within 1 week. Furthermore, she has followup with Oncology and furthermore, we will also place a consult to follow up with Pulmonary, Dr. Daniels who saw her in the hospital. TIME SPENT: Forty minutes was spent on the planning of this discharge with over half of that spent directly at the bedside of the patient providing direct patient care. Her family and the patient herself are in agreeance with her discharge while it is ultimately slightly premature because she is still requiring oxygen, which is not her baseline. The patient felt that she had good enough support system in her home and was able to ambulate and tolerate oral intake and care for herself at home that the decision with the hospitalist and pay clerk felt it was safe for discharge with close follow up with her primary care, Pulmonology, and Oncology in the next 2 to 3 weeks. The family has no further questions and are amenable for discharge to home. If there are any questions about the care received of this patient, please do not hesitate to reach out to us. [id number] #: [id number] MTDD
== END 2018-09-23 15:00 | disposition home or self-care (01) | DRG 871 ==
LOC: ED 08:36 → MED 12:31
PROVIDERS: ADMIT Internal Medicine; ATTEND Internal Medicine
PROC: 0W993ZX Drainage of Right Pleural Cavity, Percutaneous Approach, Diagnostic (ICD-10-PCS; principal; 2018-09-18)
DX: A41.9 Sepsis, unspecified organism (principal); J18.9 Pneumonia, unspecified organism; J96.01 Acute respiratory failure with hypoxia; J90 Pleural effusion, not elsewhere classified; J81.1 Chronic pulmonary edema; E87.1 Hypo-osmolality and hyponatremia; J98.11 Atelectasis; C50.912 Malignant neoplasm of unspecified site of left female breast; F41.9 Anxiety disorder, unspecified; I10 Essential (primary) hypertension; F17.210 Nicotine dependence, cigarettes, uncomplicated; E66.9 Obesity, unspecified; Z17.0 Estrogen receptor positive status [ER+]; Z72.89 Other problems related to lifestyle; Z88.0 Allergy status to penicillin; Z88.8 Allergy status to other drugs, medicaments and biological substances; Z80.3 Family history of malignant neoplasm of breast; Z80.7 Family history of other malignant neoplasms of lymphoid, hematopoietic and related tissues; Z79.899 Other long term (current) drug therapy; Z68.35 Body mass index [BMI] 35.0-35.9, adult
CPT/HCPCS: 36415; 71045; 71046; 71275; 76604; 76705; 80048; 80053; 81003; 81015; 82945; 83615; 83735; 83880; 83986; 84155; 84157; 84484; 85025; 85379; 85610; 85652; 86140; 87040; 87070; 87086; 87205; 87899; 88112; 89051; 93005; 99284; 99406; A9270-GY; J0360; J1650; J1885; J1940; J2270; J2405; Q9967

== ENCOUNTER 2020-10-27 10:03 | Observation (INO) ==
[2020-10-27] MEDS ORDERED: Midazolam 5 mg/5 ml VIAL 1 mg/ml 5 ml VIAL (5 mg) ONE (11:04)
[2020-10-27] MEDS ORDERED: VERAPAMIL 2.5 MG/ML 2 ML VIAL ** 5 mg/2 ml ONE (11:04)
[2020-10-27] MEDS ORDERED: Heparin 1,000 UNIT/ML 10 ml (10,000 UNITS) CATHLAB/DIALYSIS ONE ×2 (11:04→12:53)
[2020-10-27] MEDS ORDERED: Iohexol 350 (CONTRAST) 200 ML MDV IV ONE ×3 (11:05→13:37)
[2020-10-27] MEDS ORDERED: nitroGLYCERIN DRIP 25,000 MCG/250 ML BTL ONE (11:05)
[2020-10-27] MEDS ORDERED: diPHENhydraMINE IV 50 MG/ML 1 ml VIAL (BENADRYL) ONE (11:05)
[2020-10-27] MEDS ORDERED: Heparin 2 UNITS/ML 1000 mls 2,000 ML IV ONE (11:05)
[2020-10-27] MEDS ORDERED: Lidocaine 1% VIAL 10 MG/ML VIAL ONE (11:05)
[2020-10-27] MEDS ORDERED: Nitro 2% OINT (Nitroglycerin) 1 INCH/PAK ONE ×2 (11:50→12:35)
[2020-10-27] MEDS ORDERED: hydrALAZINE 20 mg/ml 1 ML Vial IV ONE (13:19)
[2020-10-27] MEDS ORDERED: Phenylephrine 40 mcg/mL 10mL (400mcg) SYRINGE ONE ×2 (14:03→14:06)
[2020-10-27] MEDS ORDERED: NS 0.9% 1000 ml BAG 1,000 ML IV SCH (15:00)
[2020-10-27] MEDS ORDERED: Calcium Carb (TUMS) 500 mg CHEW TAB PO PRN (15:16)
[2020-10-27] MEDS: hydrALAZINE 20 mg/ml 1 ML Vial IV IV SLOW PU PRN ×2 (15:28→23:31)
[2020-10-28] MEDS ORDERED: hydrALAZINE 20 mg/ml 1 ML Vial IV IV SLOW PU PRN (01:24)
[2020-10-28 04:17] LABS: ABS Basophils 0.1 10^3/ul (0-0.2); ABS Eosinophils 0.1 10^3/ul (0-0.6); ABS Lymphocytes 0.9 10^3/ul (1.0-4.8); ABS Monocytes 0.8 10^3/ul (0-0.8); Eosinophil % 1.3 %; Hematocrit 34 % (35-47); Hemoglobin 11.3 g/dL (12.0-16.0); Mean Corpuscular HGB Conc 34 g/dL (31-36); Mean Corpuscular Hemoglobin 34 pg (27-31); Mean Corpuscular Volume 102 fL (80-97); Mean Platelet Volume 8.2 fL (7.4-10.4); Platelet Count 277 10^3/uL (150-450); Red Cell Distribution Width 14 % (10-15); White Blood Count 7.8 10^3/uL (3.5-10.8)
[2020-10-28 04:32] LABS: BUN/Creatinine Ratio 16.9 (8-20); Blood Urea Nitrogen 10 mg/dL (6-24); CO2 Carbon Dioxide 23 mmol/L (22-32); Chloride 102 mmol/L (101-111); EGFR African American 125.8 (>60); Glucose 87 mg/dL (70-100); Magnesium 1.6 mg/dL (1.9-2.7); Sodium 132 mmol/L (135-145)
[2020-10-28 04:38] LABS: CKMB ng/mL 54.8 ng/mL (0.6-6.3)
[2020-10-28 05:33] LABS: Anion Gap 7 mmol/L (2-11)
[2020-10-28] MEDS ORDERED: Potassium Chlor 20 meq TAB.ER PO ONE (07:13)
[2020-10-28] MEDS ORDERED: Magnesium Sulfate IV 3 GM in NS 0.9% 100 ml BAG 100 ML IVPB ONE (07:13)
[2020-10-28] MEDS ORDERED: Venlafaxine XR 75 mg PO SCH (09:00)
[2020-10-28] MEDS ORDERED: NS 0.9% 100 ml BAG 100 ML ONE (09:00)
[2020-10-28 13:05] VITALS: BP 149/94
== END 2020-10-28 12:15 | disposition home or self-care (01) ==
LOC: CHICATH 10:03 → INTOOBSV 15:08 → ICU 15:08
PROVIDERS: ADMIT Internal Medicine; ATTEND Internal Medicine Cardiovascular Disease

== ENCOUNTER 2021-02-13 13:55 | Inpatient (IN) ==
[2021-02-13] MEDS ORDERED: Tetan/Diph/Pertus SYR(Tdap) 0.5 ML SYR(BOOSTRIX) use SYR contains LATEX IM ONE (15:19)
[2021-02-13 16:08] LABS: ABS Basophils 0.1 10^3/ul (0-0.2); ABS Lymphocytes 0.4 10^3/ul (1.0-4.8); ABS Monocytes 0.3 10^3/ul (0-0.8); ABS Neutrophils 15.1 10^3/ul (1.5-7.7); Eosinophil % 0.3 %; Hematocrit 37 % (35-47); Hemoglobin 12.6 g/dL (12.0-16.0); Lymphocyte % 2.7 %; Mean Corpuscular HGB Conc 34 g/dL (31-36); Mean Corpuscular Hemoglobin 34 pg (27-31); Mean Corpuscular Volume 101 fL (80-97); Mean Platelet Volume 7.4 fL (7.4-10.4); Platelet Count 279 10^3/uL (150-450); Red Blood Count 3.68 10^6 /uL (3.70-4.87); Red Cell Distribution Width 14 % (10-15)
[2021-02-13 16:25] LABS: Albumin 4.2 g/dL (3.2-5.2); Albumin/Globulin Ratio 1.6 (1-3); C Reactive Protein 124.98 mg/L (<8.01); Calcium 9.2 mg/dL (8.6-10.3); EGFR African American 82.5 (>60); EGFR Non-African American 68.2 (>60); Globulin 2.7 g/dL (2-4); Potassium 4.3 mmol/L (3.5-5.0); Total Bilirubin 0.8 mg/dL (0.2-1.0); Total Protein 6.9 g/dL (6.4-8.9)
[2021-02-13] MEDS ORDERED: Vancomycin 1,250 MG in NS 0.9% 250 ml 250 ML IVPB ONE (17:00)
[2021-02-13 17:20] LABS: Erythrocyte Sed Rate 16 mm/Hr (0-29)
[2021-02-13] MEDS ORDERED: NS 0.9% 1000 ml BAG 1,000 ML IV SCH (18:45)
[2021-02-13] MEDS ORDERED: Al Hydrox/Mg Hydrox/Simet LIQ 30 ML UDC PO PRN (18:57)
[2021-02-13] MEDS ORDERED: Ondansetron 4 mg VIAL 2 MG/ML 2 ml VIAL IV PRN (18:57)
[2021-02-13] MEDS ORDERED: Vancomycin per Pharmacy 1 EA NOTE FOLLOW UP SCH (19:00)
[2021-02-13] MEDS ORDERED: Azithromycin 500 mg/250 ml NS 500 MG/250 ML BAG IVPB ONE (19:11)
[2021-02-13] MEDS: Enoxaparin 40 MG/0.4 ML SYR SUBCUT SCH (22:11)
[2021-02-13] MEDS: Venlafaxine XR 75 mg PO SCH (22:12)
[2021-02-14] MEDS: Vancomycin 1000 MG in NS 0.9% 250 ML IVPB SCH ×2 (05:46→19:07)
[2021-02-14] MEDS: Aspirin EC 81 mg TAB.EC (enteric coated) PO SCH (08:20)
[2021-02-14 12:02] LABS: ABS Lymphocytes 0.2 10^3/ul (1.0-4.8); ABS Monocytes 0.2 10^3/ul (0-0.8); ABS Neutrophils 7.9 10^3/ul (1.5-7.7); Eosinophil % 0.1 %; Hematocrit 35 % (35-47); Hemoglobin 11.6 g/dL (12.0-16.0); Lymphocyte % 2.9 %; Mean Corpuscular HGB Conc 33 g/dL (31-36); Mean Corpuscular Hemoglobin 34 pg (27-31); Mean Corpuscular Volume 101 fL (80-97); Mean Platelet Volume 7.5 fL (7.4-10.4); Platelet Count 219 10^3/uL (150-450); Red Blood Count 3.45 10^6 /uL (3.70-4.87); Red Cell Distribution Width 14 % (10-15); White Blood Count 8.5 10^3/uL (3.5-10.8)
[2021-02-14 12:16] LABS: Calcium 8.5 mg/dL (8.6-10.3); EGFR African American 98.4 (>60); EGFR Non-African American 81.3 (>60); Potassium 3.9 mmol/L (3.5-5.0)
[2021-02-14] MEDS: Venlafaxine XR 75 mg PO SCH (20:00)
[2021-02-14] MEDS: Enoxaparin 40 MG/0.4 ML SYR SUBCUT SCH (20:03)
[2021-02-15] MEDS ORDERED: Vancomycin Trough Check NOTE FOLLOW UP ONE (06:00)
[2021-02-15 06:18] LABS: EGFR African American 110.5 (>60); EGFR Non-African American 91.4 (>60)
[2021-02-15] MEDS: Vancomycin 1000 MG in NS 0.9% 250 ML IVPB SCH (06:41)
[2021-02-15] MEDS: Aspirin EC 81 mg TAB.EC (enteric coated) PO SCH (08:39)
[2021-02-15] MEDS ORDERED: Vancomycin 750 MG in NS 0.9% 250 ML IVPB SCH (14:00)
[2021-02-15] MEDS: DOXYcycline 100 MG in NS 0.9% 250 ml 250 ML IVPB SCH (14:29)
[2021-02-15] MEDS ORDERED: Enoxaparin 40 MG/0.4 ML SYR SUBCUT SCH (21:00)
[2021-02-15] MEDS: Venlafaxine XR 75 mg PO SCH (21:05)
[2021-02-16] MEDS: DOXYcycline 100 MG in NS 0.9% 250 ml 250 ML IVPB SCH ×2 (03:05→14:30)
[2021-02-16 05:49] LABS: ABS Eosinophils 0.1 10^3/ul (0-0.6); ABS Lymphocytes 0.5 10^3/ul (1.0-4.8); ABS Monocytes 0.5 10^3/ul (0-0.8); ABS Neutrophils 3.2 10^3/ul (1.5-7.7); Eosinophil % 1.4 %; Hematocrit 35 % (35-47); Hemoglobin 11.8 g/dL (12.0-16.0); Lymphocyte % 12.5 %; Mean Corpuscular HGB Conc 34 g/dL (31-36); Mean Corpuscular Hemoglobin 34 pg (27-31); Mean Corpuscular Volume 101 fL (80-97); Mean Platelet Volume 7.6 fL (7.4-10.4); Nucleated Red Blood Cells % 0.3; Platelet Count 225 10^3/uL (150-450); Red Blood Count 3.48 10^6 /uL (3.70-4.87); Red Cell Distribution Width 14 % (10-15); White Blood Count 4.2 10^3/uL (3.5-10.8)
[2021-02-16 06:04] LABS: C Reactive Protein 100.74 mg/L (<8.01); Calcium 8.6 mg/dL (8.6-10.3); EGFR African American 118.8 (>60); EGFR Non-African American 98.2 (>60); Potassium 3.7 mmol/L (3.5-5.0)
[2021-02-16] MEDS: Aspirin EC 81 mg TAB.EC (enteric coated) PO SCH (09:31)
[2021-02-16 15:07] VITALS: BP 144/72
[2021-02-18] MEDS ORDERED: Vancomycin Trough Check NOTE FOLLOW UP ONE (06:00)
== END 2021-02-16 17:50 | disposition home or self-care (01) | DRG 872 ==
LOC: ED 13:55 → MED 13:55
PROVIDERS: ADMIT Internal Medicine; ATTEND Internal Medicine

== ENCOUNTER 2023-09-29 19:54 | Inpatient (IN) ==
[2023-09-29] MEDS: Morphine 4 MG/ML VIAL (1 ml) IV ONE (22:41)
[2023-09-29] MEDS: Ondansetron 4 mg VIAL 2 MG/ML 2 ml VIAL IV ONE (22:42)
[2023-09-29] MEDS: Acetaminophen IV 1 GM/100ML 1,000 MG/100 ML BAG IV ONE (22:43)
[2023-09-29] MEDS: Lactated Ringers 1000 ml BAG 1,000 ML IV ONE (22:46)
[2023-09-29 22:47] LABS: ABS Lymphocytes 0.3 10^3/uL (1.0-4.8); ABS Monocytes 0.5 10^3/uL (0.0-0.9); ABS Neutrophils 2.9 10^3/uL (1.5-7.6); ABS Nucleated RBC 0.01 10^3/ul; Hematocrit 26.3 % (35-45); Hemoglobin 8.9 g/dL (11.5-14.3); Lymphocyte % 9.3 %; Mean Corpuscular Hgb Conc 33.9 g/dL (31-36); Mean Corpuscular Volume 91.5 fL (80-97); Mean Platelet Volume 7.6 fL (7.5-11.2); Nucleated Red Blood Cells % 0.4 %/100WBC (0.0-0.8); Platelet Count 135 10^3/uL (150-450); Red Blood Count 2.88 10^6/uL (3.63-4.92); Red Cell Distribution Width 14.7 % (12-17); White Blood Count 3.7 10^3/uL (3.8-11.8)
[2023-09-29 22:52] LABS: INR 1.58 (0.83-1.13)
[2023-09-29 23:31] LABS: Albumin 3.2 g/dL (3.2-5.2); Albumin/Globulin Ratio 1.1 (1-3); C Reactive Protein 185.52 mg/L (<8.01); Calcium 8.7 mg/dL (8.6-10.3); Creatinine, Serum 3.12 mg/dL (0.51-0.95); Globulin 2.8 g/dL (2-4); Potassium 5.2 mmol/L (3.5-5.0); Total Bilirubin 0.5 mg/dL (0.2-1.0); eGFR CKD-EPI 16.2 (>60)
[2023-09-30] MEDS: Morphine 2 MG/ML SYRINGE IV ONE (01:48)
[2023-09-30] MEDS: NS 0.9% 1000 ml BAG 1,000 ML IV SCH (01:48)
[2023-09-30 03:40] LABS: High Sensitivity Troponin 1 Hr 217 pg/mL (<15)
[2023-09-30] MEDS: Heparin 5000 UNITS/ML 1 mL VIAL SUBCUT SCH (06:35)
[2023-09-30] MEDS: Venlafaxine XR 75 mg PO SCH (11:10)
[2023-09-30] MEDS: Morphine 2 MG/ML SYRINGE IV PRN (13:24)
[2023-09-30] MEDS: cefTRIAXone 1 gm/50 mL D5W 1 GM/50 ML BAG IV SCH (13:28)
[2023-09-30] MEDS: Lactated Ringers 1000 ml BAG 1,000 ML IV SCH (14:32)
[2023-09-30 15:12] LABS: % Iron Saturation 10 % (15-55); .Transferrin 144 mg/dL (203-362); Iron 20 ug/dL (50-212); Total Iron Binding Capacity 202 mcg/dL (250-450); Transferrin 144 mg/dL (203-362); Unsaturated Iron Binding 182 ug/dL
[2023-09-30 15:22] LABS: Folate 4.22 ng/mL (5.90-24.80)
[2023-09-30 15:24] LABS: Vitamin B12 > 1450 pg/mL (180-914)
[2023-10-01 06:56] LABS: Calcium 8.8 mg/dL (8.6-10.3); Creatinine, Serum 3.33 mg/dL (0.51-0.95); Magnesium 2.1 mg/dL (1.9-2.7); Potassium 5.5 mmol/L (3.5-5.0); eGFR CKD-EPI 14.9 (>60)
[2023-10-01 07:12] LABS: ABS Lymphocytes 0.4 10^3/uL (1.0-4.8); ABS Monocytes 0.3 10^3/uL (0.0-0.9); ABS Neutrophils 2.4 10^3/uL (1.5-7.6); ABS Nucleated RBC 0.03 10^3/ul; Eosinophil % 0.1 %; Hematocrit 25.1 % (35-45); Hemoglobin 8.4 g/dL (11.5-14.3); Lymphocyte % 12.2 %; Mean Corpuscular Hemoglobin 30.8 pg (27-33); Mean Corpuscular Hgb Conc 33.4 g/dL (31-36); Mean Corpuscular Volume 92.3 fL (80-97); Mean Platelet Volume 8.9 fL (7.5-11.2); Nucleated Red Blood Cells % 0.8 %/100WBC (0.0-0.8); Platelet Count 136 10^3/uL (150-450); Red Blood Count 2.72 10^6/uL (3.63-4.92); Red Cell Distribution Width 14.6 % (12-17); White Blood Count 3.1 10^3/uL (3.8-11.8)
[2023-10-01] MEDS: Aspirin EC 81 mg TAB.EC (enteric coated) PO SCH (07:55)
[2023-10-01] MEDS ORDERED: Lorazepam PYXIS KEY PRN (13:14)
[2023-10-01] MEDS ORDERED: Polyethylene Glycol 3350 17 GM PACKET PO PRN (13:21)
[2023-10-01 15:49] VITALS: BP 140/72
[2023-10-02] MEDS: Morphine 2 MG/ML SYRINGE IV PRN (13:08)
[2023-10-02] MEDS: Ondansetron 4 mg VIAL 2 MG/ML 2 ml VIAL IV PRN (17:46)
[2023-10-02] MEDS: Scopolamine 1 mg/72hr PATCH TRANSDERM SCH (18:27)
[2023-10-02] MEDS: fentaNYL 100 mcg/2 ml 50 MCG/ML VIAL IV SLOW PU PRN (19:56)
[2023-10-03] MEDS ORDERED: Morphine 2 MG/ML SYRINGE IV PRN (00:46)
[2023-10-03] MEDS: LORazepam 2 mg VIAL 1 ml IV PUSH PRN (08:31)
[2023-10-03] MEDS: fentaNYL 100 mcg/2 ml 50 MCG/ML VIAL IV SLOW PU ONE (08:50)
== END 2023-10-03 09:30 | disposition hospice, inpatient (51) | DRG 375 ==
LOC: EDHOLD 19:54 → ED 19:54 → SUATTDRO 09-30 01:19 → MEDTELE 09-30 03:25
PROVIDERS: ADMIT Internal Medicine; ATTEND Student in an Organized Health Care Education/Training Program